=== PATIENT | male | born 1990 | race African-American/Black ===

== ENCOUNTER 2017-07-05 12:59 | Emergency (ER) | payer OTHER ==
[2017-07-05] MEDS ORDERED: IV NORMAL SALINE 1000ML BAG 1,000 ML IV SCH (13:00)
[2017-07-05] MEDS ORDERED: ONDANSETRON PF 4 MG/2 ML VIAL. ONE (13:11)
[2017-07-05] MEDS ORDERED: MORPHINE SULFATE 4 MG/ML DISP.SYRIN. ONE (13:11)
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
[2017-07-05] MEDS ORDERED: MORPHINE SULFATE 4 MG/ML DISP.SYRIN. IV/SQ PRN (13:15)
[2017-07-05 13:20] LABS: BASO % 1 % (0-3); EOS % 3 % (0-3); HEMATOCRIT 39.5 % (39.0-53.0); HEMOGLOBIN 13.5 g/dL (13.0-17.5); LYMPH % 42 % (24-48); MEAN CORPUSCULAR HEMOGLOBIN 37 pg (25-35); MEAN CORPUSCULAR HGB CONC 34 g/dL (31-37); MEAN CORPUSCULAR VOLUME 107 fL (79-100); MONO % 6 % (0-9); NEUT % 49 % (31-73); PLATELET COUNT 250 x10^3/uL (140-400); RED BLOOD COUNT 3.68 x10^6/uL (4.30-5.70); RED CELL DISTRIBUTION WIDTH 12.1 % (11.5-14.5); WHITE BLOOD COUNT 4.7 x10^3/uL (4.0-11.0)
[2017-07-05] MEDS ORDERED: IOHEXOL 300 MG/ML 75 ML VIAL IV ONE (13:30)
[2017-07-05] MEDS ORDERED: ONDANSETRON PF 4 MG/2 ML VIAL. IV ONE (13:30)
[2017-07-05 13:31] LABS: INR 1.2 (0.8-1.1); PROTHROMBIN TIME PATIENT 14.2 SEC (11.7-14.0)
[2017-07-05 13:34] LABS: CALCIUM 8.8 mg/dL (8.5-10.1); CREATININE 0.9 mg/dL (0.7-1.3); GFR 101.2
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
[2017-07-05 13:40] LABS: ALBUMIN 3.7 g/dL (3.4-5.0); DIRECT BILIRUBIN 0.1 mg/dL (0.0-0.2); TOTAL BILIRUBIN 0.6 mg/dL (0.2-1.0); TOTAL PROTEIN 7.3 g/dL (6.4-8.2)
[2017-07-05] MEDS ORDERED: IV NORMAL SALINE 1000ML BAG 1,000 ML IV ONE (14:00)
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
[2017-07-05 14:08] LABS: PLT ESTIMATE ADEQUATE (ADEQUATE)
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
[2017-07-05] MEDS ORDERED: CONTRAST GIVEN MC PRN (14:15)
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
[2017-07-05] MEDS ORDERED: HYDROmorphone 2 MG/ML VIAL ONE (14:47)
[2017-07-05] MEDS ORDERED: NEOMY/BACITR/POLYMYXIN OINT PACKET. TP ONE (14:47)
[2017-07-05] MEDS ORDERED: HYDROmorphone 2 MG/ML VIAL IV/SQ PRN (15:00)
[2017-07-05] MEDS ORDERED: OXYC-323 PO (16:02)
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
== END 2017-07-05 16:04 | disposition left against medical advice (07) ==
LOC: ER 12:59
DX: S00.03XA Contusion of scalp, initial encounter (principal); S60.512A Abrasion of left hand, initial encounter; S60.511A Abrasion of right hand, initial encounter; S40.211A Abrasion of right shoulder, initial encounter; R07.89 Other chest pain; M25.551 Pain in right hip; R06.02 Shortness of breath; M54.5 Low back pain; M54.6 Pain in thoracic spine; V27.4XXA Motorcycle driver injured in collision with fixed or stationary object in traffic accident, initial encounter; Y93.I9 Activity, other involving external motion; Y92.410 Unspecified street and highway as the place of occurrence of the external cause; Y99.8 Other external cause status
CPT/HCPCS: 36415; 70450; 70486; 71010; 71260; 72125; 72170; 73090; 73130; 74160; 80048; 80076; 82150; 83605; 83690; 85025; 85610; 85730; 86850; 86900; 86901; 93005; 99285; G0480; Q9967

== ENCOUNTER 2017-08-22 16:15 | Inpatient (IN) | payer OTHER ==
[~2017-08-22] VITALS: Ht 175.3 cm; Wt 71.2 kg
[2017-08-22] MEDS: VECURONIUM BOLUS 10 MG VIAL. IV ONE ×2 (08:20→18:06)
[~2017-08-22 16:15] MED LIST: OXYC-323 PO
--- NOTE | 2017-08-22 16:41 | PHYS DOC ---
Past Medical History Past Medical History: Diabetes-Type I, Seizure Past Surgical History: No Surgical History Adult General Chief Complaint Chief Complaint: altered mental status, seizure activity. HPI HPI Patient is a pleasant 26-year-old male who presents with altered mental status and question of seizure-like activity. He is noted is some dependent diabetic with a history of recent onset epileptic seizures on Ativan. He had sustained a single episode several days ago injuring his right shoulder and right wrist. He was seen at a clinic and had an evaluation of these injuries. During this particular evaluation patient had multiple episodes of "" abstence seizures. Patient claimed he did have a head injury prior to the seizure activity. He is complaining of a left frontal foreign pain behind his left eye. He denies any visual changes, chest pain, abdominal pain at this time. Patient is having difficulty recalling events surrounding his seizure activity. Review of Systems Review of Systems History is difficult to obtain as patient is still quite altered from his question will seizure activity. Limited questions he is able answer patient denies any chest pain, abdominal pain Constitutional: Denies fever or chills [] Eyes: He complains of pain over his left eyebrow[] HENT: Denies nasal congestion or sore throat [] Respiratory: Denies cough or shortness of breath [] Cardiovascular: No additional information not addressed in HPI [] GI: Denies abdominal pain, nausea, vomiting, bloody stools or diarrhea [] : Denies dysuria or hematuria [] Musculoskeletal: Patient does complain of right wrist pain and right elbow pain for which she is presently wearing splints Neurologic: He does have a headache over the area he injured while on the ground.[] All other systems were reviewed and found to be within normal limits, except as documented in this note. Current Medications Current Medications Current Medications Medications (Trade) Dose Ordered Sig/Conrad Start Time Stop Time Status Last Admin Dose Admin Etomidate (Amidate) 20 mg 1X ONCE 08/22/17 18:00 08/22/17 18:01 DC Haloperidol Lactate (Haldol) 10 mg 1X ONCE 08/22/17 18:00 08/22/17 18:01 DC Lorazepam (Ativan) 2 mg 1X ONCE 08/22/17 18:00 08/22/17 18:01 DC Propofol 50 ml @ As Directed STK-MED ONCE 08/22/17 17:52 08/22/17 17:53 DC Propofol (Diprivan) 200 mg 1X ONCE 08/22/17 18:00 08/22/17 18:01 DC Sodium Chloride 1,000 ml @ 125 mls/hr Q8H 08/22/17 18:06 08/23/17 18:05 UNV Succinylcholine Chloride (Anectine) 200 mg 1X ONCE 08/22/17 18:00 08/22/17 18:01 DC Allergies Allergies Allergies Coded Allergies Type Severity Reaction Last Updated Verified No Known Drug Allergies 07/05/17 No Physical Exam Physical Exam Constitutional: he is thin but muscular and well-developed he seems somnolent and quiet at times but then becomes very agitated reaching out at staff become very angry very quickly although he is confused unaware of his surroundings he exhibits no clear seizure activity but becomes unresponsive with staring into space was as an absence seizure. HENT: Normocephalic, atraumatic, bilateral external ears normal, oropharynx moist, no oral exudates, nose normal. [] Eyes: PERRLA, EOMI, conjunctiva normal, no discharge. [] Neck: Normal range of motion, no tenderness, supple, no stridor. [] Cardiovascular:Heart rate regular rhythm, no murmur [] Lungs & Thorax: Bilateral breath sounds clear to auscultation [] Abdomen: Bowel sounds normal, soft, no tenderness, no masses, no pulsatile masses. [] Skin: Warm, dry, no erythema, no rash. [] Back: No tenderness, no CVA tenderness. [] Extremities: Is some tenderness over the dorsum of the hand where he suffered from 2 lacerations at up in approximated over time not actively bleeding patient also some tenderness along the dorsum of the wrist with no oxygen deformity. Neurologic: he is confused moves ME SPONTANEOUSLY. PHYSICAL PLAN A SLIGHT PAIN OVER THE LATERAL AND MEDIAL EDGES OF THE RIGHT KNEE. Psychologic: he is confused his judgment is impaired Current Patient Data Vital Signs Vital Signs Date Time Temp Pulse Resp B/P (MAP) Pulse Ox O2 Delivery O2 Flow Rate FiO2 08/22/17 16:15 98.9 73 18 119/77 (91) 99 Room Air 98.9 Lab Values Laboratory Tests Test 08/22/17 16:20 08/22/17 16:48 White Blood Count 3.9 x10^3/uL (4.0-11.0) L Red Blood Count 3.56 x10^6/uL (4.30-5.70) L Hemoglobin 12.9 g/dL (13.0-17.5) L Hematocrit 38.1 % (39.0-53.0) L Mean Corpuscular Volume 107 fL (79-100) H Mean Corpuscular Hemoglobin 36 pg (25-35) H Mean Corpuscular Hemoglobin Concent 34 g/dL (31-37) Red Cell Distribution Width 12.6 % (11.5-14.5) Platelet Count 327 x10^3/uL (140-400) Neutrophils (%) (Auto) 49 % (31-73) Lymphocytes (%) (Auto) 43 % (24-48) Monocytes (%) (Auto) 5 % (0-9) Eosinophils (%) (Auto) 3 % (0-3) Basophils (%) (Auto) 1 % (0-3) Neutrophils # (Auto) 1.9 x10^3uL (1.8-7.7) Lymphocytes # (Auto) 1.7 x10^3/uL (1.0-4.8) Monocytes # (Auto) 0.2 x10^3/uL (0.0-1.1) Eosinophils # (Auto) 0.1 x10^3/uL (0.0-0.7) Basophils # (Auto) 0.0 x10^3/uL (0.0-0.2) Sodium Level 140 mmol/L (136-145) Potassium Level 4.4 mmol/L (3.5-5.1) Chloride Level 105 mmol/L (98-107) Carbon Dioxide Level 27 mmol/L (21-32) Anion Gap 8 (6-14) Blood Urea Nitrogen 9 mg/dL (8-26) Creatinine 0.9 mg/dL (0.7-1.3) Estimated GFR (Cockcroft-Gault) 122.5 BUN/Creatinine Ratio 10 (6-20) Glucose Level 93 mg/dL (70-99) Lactic Acid Level 1.2 mmol/L (0.4-2.0) Calcium Level 9.2 mg/dL (8.5-10.1) Magnesium Level 2.0 mg/dL (1.8-2.4) Total Bilirubin 0.4 mg/dL (0.2-1.0) Direct Bilirubin 0.1 mg/dL (0.0-0.2) Aspartate Amino Transferase (AST) 37 U/L (15-37) Alanine Aminotransferase (ALT) 21 U/L (16-63) Alkaline Phosphatase 81 U/L (46-116) Ammonia 38 mcmol/L (11-34) H Troponin I Quantitative < 0.017 ng/mL (0.000-0.055) Total Protein 7.3 g/dL (6.4-8.2) Albumin 4.0 g/dL (3.4-5.0) Albumin/Globulin Ratio 1.2 (1.0-1.7) Glucose (Fingerstick) 98 mg/dL (70-99) Laboratory Tests 08/22/17 16:20 Laboratory Tests 08/22/17 16:20 EKG EKG [] Radiology/Procedures Radiology/Procedures [] IMAGING REPORT Signed PATIENT: DEBORAH LOVE ACCOUNT: [id number] : 1990 LOCATION: ER AGE: 26 SEX: M EXAM STATUS: REG ER ORD. PHYSICIAN: HENRIETTA TIM MD REASON: ams with fall PROCEDURE: CT HEAD WO CONTRAST CT head without contrast 08/22/2017 CLINICAL INDICATION: Altered mental status. COMPARISON: None. TECHNIQUE: Multiple CT images of the head were obtained without contrast according to standard protocol. Procedure dose FINDINGS: No acute intracranial hemorrhage or extra-axial fluid collection. No midline shift. The pabol-white matter interfaces are maintained. The basal cisterns are patent. The ventricles and subarachnoid spaces are normal in size and configuration for age. There is mild ethmoid sinus mucosal thickening. IMPRESSION: 1. No acute intracranial hemorrhage. 2. Mild ethmoid sinus mucosal thickening. Electronically signed by: Merrill Caceres MD (08/22/2017 5:28 PM) [facility] DICTATED and SIGNED BY: MERRILL CACERES MD DATE: 08/22/17 1726 CC: HENRIETTA TIM MD; NO PCP ~ [facility] [address] [place] [address] IMAGING REPORT Signed PATIENT: DEBORAH LOVE ACCOUNT: [id number] : 1990 LOCATION: ER AGE: 26 SEX: M EXAM STATUS: PRE ER ORD. PHYSICIAN: HENRIETTA TIM MD REASON: ams PROCEDURE: PORTABLE CHEST 1V EXAM: CHEST 1 VIEW History: Altered mental status COMPARISON: 07/05/2017 TECHNIQUE: Single portable radiograph of the chest FINDINGS: The cardiac silhouette is unremarkable. The lungs are clear bilaterally. The costophrenic sulci are clear and well demarcated. IMPRESSION: No radiographic evidence of an acute cardiopulmonary process. DICTATED and SIGNED BY: VÍCTOR HERNANDEZ MD DATE: 08/22/17 164 CC: HENRIETTA TIM MD; NO PCP ~ Course & Med Decision Making Course & Med Decision Making Pertinent Labs and Imaging studies reviewed. (See chart for details) [\\\\lMy seizure differential. Acute ischemic or hemorrhagic stroke, particularly lobar hemorrhage subdural hematoma Subarachnoid hemorrhage subarachnoid hemorrhage Traumatic brain injury Hypoxic-ischemic injury Brain abscess Meningitis or encephalitis Acute symptomatic seizures may also be caused by an acute medical illness, metabolic disturbance, substance ingestion or withdrawal, and medication exposure Hypoglycemia Hyperglycemia Nonketotic hyperglycemia Hyponatremia Hypocalcemia Hypomagnesemia Uremia secondary to renal failure Hyperthyroidism Acute intermittent porphyria (AIP) Drug intoxication, poisoning, and overdose `` Cocaine, amphetamines, and other illicit substances may cause seizures after acute intoxication. Prescribed medications that may lower the seizure threshold or cause seizures in overdose are listed in the table Cerebrovascular disease Primary or metastatic brain tumors Vascular malformations Prior central nervous system infection, such as neurocysticercosis Head injury (see "Post-traumatic seizures and epilepsy") Neurodegenerative dementia, including Alzheimer disease DIFFERENTIAL DIAGNOSIS Seizure is primarily a clinical diagnosis, and accurate diagnosis requires differentiating seizure from other common clinical events that can mimic seizure. In adults, the primary conditions to consider in patients presenting with transient or paroxysmal neurologic events Syncope Transient ischemic attack (particularly in older adults) Migraine Panic attack and anxiety Psychogenic nonepileptic seizure Transient global amnesia (rare before the age of 50 years) Narcolepsy with cataplexy Paroxysmal movement disorders Presents with acute agitation and seizure activity; for the last 4 weeks according to the girlfriend/fianc at the bedside. Patient was very complacent and interactive and appropriate during initial evaluation. Over the course of his ER visit patient was able to comply and allowed us to complete and EKG, our blood work with IV Hep-Lock. He immediately passed out during her initial evaluation and became increasing agitated and attempting to rule out the IV at the time. We offered him Ativan for sedation which was happy to take. 2 to work to sedate him. Time is 4:30 PM patient was feeling markedly better and he became acutely unresponsive again try to remove his IV became very agitated not recognize where he was or who he is taking care of him. Patient quietly went to the CT scanner at 5 PM without issue. Patient was placed on oxygen and had an Accu-Chek done on arrival to ensure that the psychosis that he was experiencing was no social hypoxia or hypoglycemia. They did not affect his mentation at all. His Accu-Chek on arrival was 98 Impression patient had repeated episodes of this syncopal events while at rest while attempting to stand. At one point when his fiance and friend came into visit he became acutely agitated and attempted to leave AMA. Patient became acutely aggressive with staff attempted to push his way out the door when a code bev was called. Security and placed patient became increasing agitated removed his shirt and encouraged the mobile security specialist to tase him. Patient as he tried to push his way out of the room completely collapsed. Became unresponsive. There is no seizure activity time staff immediately picked him up identified. No specific injury on him and placed him in the bed. When he awoke he became increasing agitated begin strike out at the staff attempted to grab the nurse's and strike the physician. Subdued him at the time using pressure and soft restraints an additional dose of Haldol was given IM and Ativan. Patient was continually active and violent. Continually claimed that when he was being held against his will and that we had no right to treat him's as such but enforcing he would pass out again and become unresponsive. For his safety and the safety of staff we felt it best to intervene keep this patient for more thorough evaluation in the ICU for evaluation of this syncope which may be cardiogenic in nature. I concern it also may be an absence seizure or may be associated with drugs. I will call and expiratory evaluation. We transported him from room 22 to room 4 for safety. Over the course of the movement from room 22 to room 4 patient became unresponsive again. These episodes of CP last anywhere from 10-2 minutes patient became increasing agitated once awoke again. It was decided to protect this patient's airway because of the syncopal events/seizure activity that he was expressing. Patient has a Mallampati 1, he has an ASA class patient to it was unclear about his last meal but he clearly had no immobility issues with his neck or issues with his teeth. Patient has no documented challenges with anesthesia. I elected to intubate him with a 4.0 Mac, using 8.0 ET tube. Patient had 150 mg of IV succinylcholine ordered, 20 monos of IV etomidate ordered, propofol to included a 2.5 mg gram bolus of present and a sedation drip ordered after that. Patient was also given a 10 g dose of vecuronium to keep him sedate while on the vent. Intubation completed at approximately 6:10 PM Seizure: Indication airway protection for sudden altered mental status and syncope. Patient was prepped and preoxygenated with an Ambu bag as well as a nasal cannulas. Patient was placed on the monitor and capnometry, and IV Hep- Lock that was verified, patient was given IV fluid bolus given the medications as ordered above. Patient was given medication since order of etomidate, succinylcholine, propofol intubated first past. 80 ET tube was placed 24 seconds at the teeth visualized through the cords, first pass without issue patient had the ET tube touch to his face. Commercial device, patient capnometry that was positive for change. Patient never became hypoxic, patient has been resting comfortable. he was placed on a ventilator machine was placed on the vent rate of 12 tidal volume of 500. On assist control. In saturation or her percent on FiO2 50%. Patient on ABG ordered as well as a post intubation chest x-ray completed. Communications Controller note: Dr. Jeanie mares Communications Controller called at of the service initially paged at 6:15 PM Consult called back at 6:15 PM Discussed the case I presented and they agreed with admission. Time of acceptance 6:15 PM "I have assessed this patient clinically and believe that their condition requires an admission to the hospital. After consulting the admitting physician about this case, they have asked that I admit this patient to their service as an inpatient based on the clinical presentation and my impression." I spent approximately 45-50 minutes working and engaged directly in the patient care providing critical care evaluation this includes but not limited to time spent engaged in work directly related to the individual patients care. I spent time at the bedside, reviewing test results, discussing the case with staff, documenting the medical record and time spent with EMS discussing specific treatment issues when the patient presented and during his evaluation. Dragon Disclaimer Dragon Disclaimer This electronic medical record was generated, in whole or in part, using a voice recognition dictation system. Departure Departure Impression: Primary Impression: Seizures Additional Impressions: Mental status change Syncope and collapse Disposition: 09 ADMITTED INPATIENT Admitting Physician: Jeanie Mares Condition: GUARDED Referrals: NO PCP (PCP) Problem Qualifiers HENRIETTA TIM MD Aug 22, 2017 16:41
[2017-08-22 16:43] LABS: BASO % 1 % (0-3); EOS % 3 % (0-3); HEMATOCRIT 38.1 % (39.0-53.0); HEMOGLOBIN 12.9 g/dL (13.0-17.5); LYMPH # 1.7 x10^3/uL (1.0-4.8); LYMPH % 43 % (24-48); MEAN CORPUSCULAR HEMOGLOBIN 36 pg (25-35); MEAN CORPUSCULAR HGB CONC 34 g/dL (31-37); MEAN CORPUSCULAR VOLUME 107 fL (79-100); MONO % 5 % (0-9); NEUT % 49 % (31-73); PLATELET COUNT 327 x10^3/uL (140-400); RED BLOOD COUNT 3.56 x10^6/uL (4.30-5.70); RED CELL DISTRIBUTION WIDTH 12.6 % (11.5-14.5); WHITE BLOOD COUNT 3.9 x10^3/uL (4.0-11.0)
--- NOTE | 2017-08-22 16:50 | RAD ---
EXAM: CHEST 1 VIEW History: Altered mental status COMPARISON: 07/05/2017 TECHNIQUE: Single portable radiograph of the chest FINDINGS: The cardiac silhouette is unremarkable. The lungs are clear bilaterally. The costophrenic sulci are clear and well demarcated. IMPRESSION: No radiographic evidence of an acute cardiopulmonary process.
[2017-08-22 16:54] LABS: CALCIUM 9.2 mg/dL (8.5-10.1); CREATININE 0.9 mg/dL (0.7-1.3); GFR 122.5; POTASSIUM 4.4 mmol/L (3.5-5.1)
[2017-08-22 17:00] LABS: ALBUMIN/GLOBULIN RATIO 1.2 (1.0-1.7); DIRECT BILIRUBIN 0.1 mg/dL (0.0-0.2); TOTAL BILIRUBIN 0.4 mg/dL (0.2-1.0); TOTAL PROTEIN 7.3 g/dL (6.4-8.2)
--- NOTE | 2017-08-22 17:32 | RAD ---
CT head without contrast 08/22/2017 CLINICAL INDICATION: Altered mental status. COMPARISON: None. TECHNIQUE: Multiple CT images of the head were obtained without contrast according to standard protocol. Procedure dose FINDINGS: No acute intracranial hemorrhage or extra-axial fluid collection. No midline shift. The pablo-white matter interfaces are maintained. The basal cisterns are patent. The ventricles and subarachnoid spaces are normal in size and configuration for age. There is mild ethmoid sinus mucosal thickening. IMPRESSION: 1. No acute intracranial hemorrhage. 2. Mild ethmoid sinus mucosal thickening. Electronically signed by: Donavon Caceres MD (08/22/2017 5:28 PM) [facility]
[2017-08-22] MEDS ORDERED: HALOPERIDOL LACTATE 5 MG/ML VIAL. ONE (17:39)
[2017-08-22] MEDS ORDERED: PROPOFOL 50 ML IV ONE ×2 (17:52→18:17)
--- NOTE | 2017-08-22 17:58 | EKG ---
[facility] [address] [place] [address] Test Date: 2017-08-22 Test Time: 16:44:07 Pat Name: DEBORAH LOVE Department: Room: Gender: Flare Maker: BRITTNI : 1990 Requested By: HENRIETTA TIM Order Number: [id number] Reading MD: Measurements Intervals [place] Rate: 69 P: 39 TN: 186 QRS: 82 QRSD: 98 T: 44 QT: 354 QTc: 381 Interpretive Statements SINUS RHYTHM INCOMPLETE RIGHT BUNDLE BRANCH BLOCK QRS(T) CONTOUR ABNORMALITY CONSIDER ANTEROSEPTAL MYOCARDIAL DAMAGE POSSIBLY ABNORMAL ECG RI6.01 No previous ECG available for comparison
[2017-08-22] MEDS ORDERED: HALOPERIDOL LACTATE 5 MG/ML VIAL. IM ONE (18:00)
[2017-08-22] MEDS ORDERED: PROPOFOL 10 MG/ML (20ML) VIAL. IV ONE (18:00)
[2017-08-22] MEDS ORDERED: SUCCINYLCHOLINE 200 MG/10 ML VIAL. IV ONE (18:00)
[2017-08-22] MEDS ORDERED: PROPOFOL 20 ML IV ONE (18:00)
[2017-08-22] MEDS ORDERED: ETOMIDATE 20 MG/10 ML VIAL. IV ONE (18:00)
[2017-08-22] MEDS ORDERED: IV NORMAL SALINE 1000ML BAG 1,000 ML IV SCH (18:06)
[2017-08-22 18:36] LABS: FIO2 ABG 50; HCO3 ABG 25 mmol/L (21-28); PCO2 ABG 51 mmHg (35-46); PH ABG 7.32 (7.35-7.45); PO2 ABG 200 mmHg (85-108); SAT O2 ABG 99 % (92-99)
[2017-08-22 19:00] VITALS: BP 93/49
[2017-08-22 19:27] LABS: BILIRUBIN,URINE NEGATIVE (NEG); GLUCOSE,URINE NEGATIVE (NEG); NITRITE,URINE NEGATIVE (NEG); PH,URINE 5.5; PROTEIN,URINE NEGATIVE (NEG-TRACE); UROBILINOGEN,URINE 0.2 mg/dL (0.2 mg/dL)
[2017-08-22 19:45] LABS: BARBITURATES NEG (NEG); BENZODIAZEPINES POS (NEG); CANNABINOIDS POS (NEG); COCAINE NEG (NEG); METHADONE NEG (NEG); OPIATES NEG (NEG); PHENCYCLIDINE NEG (NEG)
[2017-08-22 19:52] LABS: BACTERIA,URINE 0 /HPF (0-FEW); RBC,URINE OCC /HPF (0-2); SQUAMOUS EPITHELIAL CELL,UR FEW /LPF; WBC,URINE 0 /HPF (0-4)
[2017-08-22 20:00] VITALS: BP 86/49
[2017-08-22] MEDS: PROPOFOL 100 ML IV PRN (20:31)
--- NOTE | 2017-08-22 20:40 | RAD ---
AP abdominal radiograph 08/22/2017 Clinical indication: ICU patient, OG tube placement. COMPARISON: None. FINDINGS: Transesophageal gastric tube coursing below the level the hemidiaphragms with the distal tip and proximal side-port overlying the expected region of the gastric fundus. IMPRESSION: Gastric tube, as detailed. Electronically signed by: Donavon Caceres MD (08/22/2017 8:36 PM) [facility]
[2017-08-22 21:00] VITALS: BP 90/52
[2017-08-22] MEDS ORDERED: levETIRAcetam 500 MG in IV DEXTROSE 5% 100 ML IV SCH (21:00)
[2017-08-22] MEDS ORDERED: AZITHROMYCIN 500 MG in IV NORMAL SALINE 250ML 250 ML IV ONE (21:30)
[2017-08-22 22:00] VITALS: BP 96/53
--- NOTE | 2017-08-22 22:34 | PDOC1 ---
History and Physical Date of Admission Date of Admission DATE: 08/22/17 TIME: 22:28 Identification/Chief Complaint Chief Complaint seizure, face pain, shoulder pain Problems: Source Source: Caregiver, Chart review History of Present Illness History of Present Illness Pt intubated, history from chart and RN and ER MD Mr. Lane, is a 26-year-old male admit to ICU, intubated after becoming confused and combative. He presented with seizure-like activity, and recent seizures, but was reported to be taking ativan for them He injured himself a few days ago, after a large witnessed seizure. He wanted his shoulder evaluated for pain, but then had multiple small seizures in the ER , became confused, then combative, and was intubated as he seemed to be a danger to himself He complained of some pain near his left eye, and CT showed edema to his sinuses. Past Medical History CENTRAL NERVOUS SYSTEM: Seizure Psych: Other Family History Family History: Family History Unknown Social History ALCOHOL: other Drugs: Marijuana Current Problem List Problem List Problems Medical Problems: (1) Syncope and collapse Status: Acute Problems: Current Medications Current Medications Current Medications Lorazepam (Ativan) 2 mg STK-MED ONCE .ROUTE ; Start 08/22/17 at 16:20; Stop 08/22/17 at 16:21; Status DC Lorazepam (Ativan) 2 mg 1X ONCE IV Last administered on 08/22/17 16:20; Start 08/22/17 at 16:30; Stop 08/22/17 at 16:31; Status DC Haloperidol Lactate (Haldol) 5 mg STK-MED ONCE .ROUTE ; Start 08/22/17 at 17:39 ; Stop 08/22/17 at 17:40; Status DC Succinylcholine Chloride (Anectine) 200 mg 1X ONCE IV Last administered on 17:58; Start 08/22/17 at 18:00; Stop 08/22/17 at 18:01; Status DC Etomidate (Amidate) 20 mg 1X ONCE IV Last administered on 08/22/17 17:57; Start 08/22/17 at 18:00; Stop 08/22/17 at 18:01; Status DC Haloperidol Lactate (Haldol) 10 mg 1X ONCE IM Last administered on 08/22/17 17:42; Start 08/22/17 at 18:00; Stop 08/22/17 at 18:01; Status DC Lorazepam (Ativan) 2 mg 1X ONCE IM Last administered on 08/22/17 17:42; Start 08/22/17 at 18:00; Stop 08/22/17 at 18:01; Status DC Propofol (Diprivan) 200 mg 1X ONCE IV Last administered on 08/22/17 18:02; Start 08/22/17 at 18:00; Stop 08/22/17 at 18:01; Status DC Propofol 20 ml @ 0 mls/hr 1X ONCE IV Last administered on 08/22/17 18:02; Start 08/22/17 at 18:00; Stop 08/22/17 at 18:01; Status DC Propofol 50 ml @ As Directed STK-MED ONCE IV ; Start 08/22/17 at 17:52; Stop at 17:53; Status DC Sodium Chloride 1,000 ml @ 125 mls/hr Q8H IV Last administered on 08/22/17 18 :06; Start 08/22/17 at 18:06; Stop 08/23/17 at 18:05 Propofol 50 ml @ As Directed STK-MED ONCE IV ; Start 08/22/17 at 18:17; Stop at 18:18; Status DC Vecuronium [place] (Norcuron Bolus) 10 mg 1X ONCE IV Last administered on 08/22 18:06; Start 08/22/17 at 18:30; Stop 08/22/17 at 18:31; Status DC Levetiracetam 500 mg/Dextrose 105 ml @ 420 mls/hr Q12HR IV ; Start 08/22/17 at 21:00; Stop 08/22/17 at 21:00; Status DC Levetiracetam 500 mg/Sodium Chloride 105 ml @ 420 mls/hr Q12HR IV Last administered on 08/22/17 21:34; Start 08/22/17 at 21:00 Lorazepam (Ativan) 1 mg PRN Q1HR PRN IV COMM; Start 08/22/17 at 20:15 Lorazepam (Ativan) 2 mg PRN Q1HR PRN IV COMM; Start 08/22/17 at 20:15 Propofol 100 ml @ 0 mls/hr CONT PRN IV PER PROTOCOL Last administered on 20:31; Start 08/22/17 at 20:15 Azithromycin 500 mg/Sodium Chloride 250 ml @ 250 mls/hr 1X ONCE IV Last administered on 08/22/17 21:59; Start 08/22/17 at 21:30; Stop 08/22/17 at 22:29 Azithromycin (Zithromax) 250 mg DAILY PO ; Start 08/23/17 at 09:00 Active Scripts Active Percocet 5-325 Mg Tablet (Oxycodone/Acetaminophen) 1 Each Tablet 1-2 Tab PO Q6HRS PRN Allergies Allergies: Coded Allergies: No Known Drug Allergies (Unverified , 07/05/17) ROS Review of System unable, pt confused, then intubated Physical Exam General: moderate distress, Other HEENT: Atraumatic, EOMI Lungs: Clear to auscultation, Normal air movement, Other (on vent) Heart: S1S2, no murmurs, other Abdomen: Normal bowel sounds, Soft Rectal Exam: not examined Extremities: No clubbing, No edema, Normal pulses Skin: No rashes, Other Neuro: Other Psych/Mental Status: Other Vitals Vitals Vital Signs Date Time Temp Pulse Resp B/P (MAP) Pulse Ox O2 Delivery O2 Flow Rate FiO2 08/22/17 22:05 100 Ventilator 08/22/17 18:35 73 12 08/22/17 16:15 98.9 119/77 (91) 98.9 Labs Labs Laboratory Tests Test 08/22/17 16:20 08/22/17 16:48 08/22/17 18:15 08/22/17 18:58 White Blood Count 3.9 x10^3/uL (4.0-11.0) Red Blood Count 3.56 x10^6/uL (4.30-5.70) Hemoglobin 12.9 g/dL (13.0-17.5) Hematocrit 38.1 % (39.0-53.0) Mean Corpuscular Volume 107 fL (79-100) Mean Corpuscular Hemoglobin 36 pg (25-35) Mean Corpuscular Hemoglobin Concent 34 g/dL (31-37) Red Cell Distribution Width 12.6 % (11.5-14.5) Platelet Count 327 x10^3/uL (140-400) Neutrophils (%) (Auto) 49 % (31-73) Lymphocytes (%) (Auto) 43 % (24-48) Monocytes (%) (Auto) 5 % (0-9) Eosinophils (%) (Auto) 3 % (0-3) Basophils (%) (Auto) 1 % (0-3) Neutrophils # (Auto) 1.9 x10^3uL (1.8-7.7) Lymphocytes # (Auto) 1.7 x10^3/uL (1.0-4.8) Monocytes # (Auto) 0.2 x10^3/uL (0.0-1.1) Eosinophils # (Auto) 0.1 x10^3/uL (0.0-0.7) Basophils # (Auto) 0.0 x10^3/uL (0.0-0.2) Sodium Level 140 mmol/L (136-145) Potassium Level 4.4 mmol/L (3.5-5.1) Chloride Level 105 mmol/L (98-107) Carbon Dioxide Level 27 mmol/L (21-32) Anion Gap 8 (6-14) Blood Urea Nitrogen 9 mg/dL (8-26) Creatinine 0.9 mg/dL (0.7-1.3) Estimated GFR (Cockcroft-Gault) 122.5 BUN/Creatinine Ratio 10 (6-20) Glucose Level 93 mg/dL (70-99) Lactic Acid Level 1.2 mmol/L (0.4-2.0) Calcium Level 9.2 mg/dL (8.5-10.1) Magnesium Level 2.0 mg/dL (1.8-2.4) Total Bilirubin 0.4 mg/dL (0.2-1.0) Direct Bilirubin 0.1 mg/dL (0.0-0.2) Aspartate Amino Transf (AST/SGOT) 37 U/L (15-37) Alanine Aminotransferase (ALT/SGPT) 21 U/L (16-63) Alkaline Phosphatase 81 U/L (46-116) Ammonia 38 mcmol/L (11-34) Troponin I Quantitative < 0.017 ng/mL (0.000-0.055) Total Protein 7.3 g/dL (6.4-8.2) Albumin 4.0 g/dL (3.4-5.0) Albumin/Globulin Ratio 1.2 (1.0-1.7) Glucose (Fingerstick) 98 mg/dL (70-99) O2 Saturation 99 % (92-99) Arterial Blood pH 7.32 (7.35-7.45) Arterial Blood pCO2 at Patient Temp 51 mmHg (35-46) Arterial Blood pO2 at Patient Temp 200 mmHg (85-108) Arterial Blood HCO3 25 mmol/L (21-28) Arterial Blood Base Excess -1 mmol/L (-3-3) FiO2 50 Urine Collection Type U cath Urine Color Yellow Urine Clarity Hazy Urine pH 5.5 Urine Specific [place] 1.025 Urine Protein Negative mg/dL (NEG-TRACE) Urine Glucose (UA) Negative mg/dL (NEG) Urine Ketones (Stick) Negative mg/dL (NEG) Urine Blood Negative (NEG) Urine Nitrite Negative (NEG) Urine Bilirubin Negative (NEG) Urine Urobilinogen Dipstick 0.2 mg/dL (0.2 mg/dL) Urine Leukocyte Esterase Negative (NEG) Urine RBC Occ /HPF (0-2) Urine WBC 0 /HPF (0-4) Urine Squamous Epithelial Cells Few /LPF Urine Transitional Epithelial Cells Occ /LPF Urine Bacteria 0 /HPF (0-FEW) Urine Mucus Marked /LPF Urine Opiates Screen Neg (NEG) Urine Methadone Screen Neg (NEG) Urine Barbiturates Neg (NEG) Urine Phencyclidine Screen Neg (NEG) Urine Amphetamine/Methamphetamine Neg (NEG) Urine Benzodiazepines Screen Pos (NEG) Urine Cocaine Screen Neg (NEG) Urine Cannabinoids Screen Pos (NEG) Urine Ethyl Alcohol Neg (NEG) Test 08/22/17 21:12 Glucose (Fingerstick) 77 mg/dL (70-99) Laboratory Tests Test 08/22/17 16:20 08/22/17 16:48 08/22/17 18:15 08/22/17 18:58 White Blood Count 3.9 x10^3/uL (4.0-11.0) Red Blood Count 3.56 x10^6/uL (4.30-5.70) Hemoglobin 12.9 g/dL (13.0-17.5) Hematocrit 38.1 % (39.0-53.0) Mean Corpuscular Volume 107 fL (79-100) Mean Corpuscular Hemoglobin 36 pg (25-35) Mean Corpuscular Hemoglobin Concent 34 g/dL (31-37) Red Cell Distribution Width 12.6 % (11.5-14.5) Platelet Count 327 x10^3/uL (140-400) Neutrophils (%) (Auto) 49 % (31-73) Lymphocytes (%) (Auto) 43 % (24-48) Monocytes (%) (Auto) 5 % (0-9) Eosinophils (%) (Auto) 3 % (0-3) Basophils (%) (Auto) 1 % (0-3) Neutrophils # (Auto) 1.9 x10^3uL (1.8-7.7) Lymphocytes # (Auto) 1.7 x10^3/uL (1.0-4.8) Monocytes # (Auto) 0.2 x10^3/uL (0.0-1.1) Eosinophils # (Auto) 0.1 x10^3/uL (0.0-0.7) Basophils # (Auto) 0.0 x10^3/uL (0.0-0.2) Sodium Level 140 mmol/L (136-145) Potassium Level 4.4 mmol/L (3.5-5.1) Chloride Level 105 mmol/L (98-107) Carbon Dioxide Level 27 mmol/L (21-32) Anion Gap 8 (6-14) Blood Urea Nitrogen 9 mg/dL (8-26) Creatinine 0.9 mg/dL (0.7-1.3) Estimated GFR (Cockcroft-Gault) 122.5 BUN/Creatinine Ratio 10 (6-20) Glucose Level 93 mg/dL (70-99) Lactic Acid Level 1.2 mmol/L (0.4-2.0) Calcium Level 9.2 mg/dL (8.5-10.1) Magnesium Level 2.0 mg/dL (1.8-2.4) Total Bilirubin 0.4 mg/dL (0.2-1.0) Direct Bilirubin 0.1 mg/dL (0.0-0.2) Aspartate Amino Transf (AST/SGOT) 37 U/L (15-37) Alanine Aminotransferase (ALT/SGPT) 21 U/L (16-63) Alkaline Phosphatase 81 U/L (46-116) Ammonia 38 mcmol/L (11-34) Troponin I Quantitative < 0.017 ng/mL (0.000-0.055) Total Protein 7.3 g/dL (6.4-8.2) Albumin 4.0 g/dL (3.4-5.0) Albumin/Globulin Ratio 1.2 (1.0-1.7) Glucose (Fingerstick) 98 mg/dL (70-99) O2 Saturation 99 % (92-99) Arterial Blood pH 7.32 (7.35-7.45) Arterial Blood pCO2 at Patient Temp 51 mmHg (35-46) Arterial Blood pO2 at Patient Temp 200 mmHg (85-108) Arterial Blood HCO3 25 mmol/L (21-28) Arterial Blood Base Excess -1 mmol/L (-3-3) FiO2 50 Urine Collection Type U cath Urine Color Yellow Urine Clarity Hazy Urine pH 5.5 Urine Specific [place] 1.025 Urine Protein Negative mg/dL (NEG-TRACE) Urine Glucose (UA) Negative mg/dL (NEG) Urine Ketones (Stick) Negative mg/dL (NEG) Urine Blood Negative (NEG) Urine Nitrite Negative (NEG) Urine Bilirubin Negative (NEG) Urine Urobilinogen Dipstick 0.2 mg/dL (0.2 mg/dL) Urine Leukocyte Esterase Negative (NEG) Urine RBC Occ /HPF (0-2) Urine WBC 0 /HPF (0-4) Urine Squamous Epithelial Cells Few /LPF Urine Transitional Epithelial Cells Occ /LPF Urine Bacteria 0 /HPF (0-FEW) Urine Mucus Marked /LPF Urine Opiates Screen Neg (NEG) Urine Methadone Screen Neg (NEG) Urine Barbiturates Neg (NEG) Urine Phencyclidine Screen Neg (NEG) Urine Amphetamine/Methamphetamine Neg (NEG) Urine Benzodiazepines Screen Pos (NEG) Urine Cocaine Screen Neg (NEG) Urine Cannabinoids Screen Pos (NEG) Urine Ethyl Alcohol Neg (NEG) Test 08/22/17 21:12 Glucose (Fingerstick) 77 mg/dL (70-99) VTE Prophylaxis Ordered VTE Prophylaxis Devices: No VTE Pharmacological Prophylaxi: Yes Assessment/Plan Assessment/Plan acute encephalopathy, NOS, combative and agitated, possible psychosis, Seizure disorder, mult small of activity seen in the ER, poss abcence, Substance abuse, THC, suspect other reported Diabetes, NOS, blood sugars stable sinusitis on CT scan with report of facial pain, Azithromycin macrocytosis without anemia, check b12 and folate, admit to ICU WOODY MORENO MD Aug 22, 2017 22:33
[2017-08-22 23:00] VITALS: BP 95/62
[2017-08-22] MEDS: ENOXAPARIN 40 MG/0.4 ML SYRINGE. SQ SCH (23:43)
[2017-08-22 23:59] VITALS: BP 94/55
[2017-08-23] VITALS (23 sets, daily range): BP systolic 96–135; BP diastolic 43–79
[2017-08-23] MEDS ORDERED: PNEUMOCOCCAL VAX SCREEN BY RX. MC ONE (00:15)
[2017-08-23] MEDS ORDERED: FAMOTIDINE 20 MG/2 ML VIAL IVP ONE (02:30)
[2017-08-23] MEDS: IV NORMAL SALINE 1000ML BAG 1,000 ML IV SCH ×3 (02:39→15:50)
[2017-08-23] MEDS: PROPOFOL 100 ML IV PRN ×3 (04:43→20:55)
[2017-08-23 05:57] LABS: BASO % 1 % (0-3); EOS % 4 % (0-3); HEMATOCRIT 34.8 % (39.0-53.0); HEMOGLOBIN 11.7 g/dL (13.0-17.5); LYMPH # 1.8 x10^3/uL (1.0-4.8); LYMPH % 60 % (24-48); MEAN CORPUSCULAR HEMOGLOBIN 37 pg (25-35); MEAN CORPUSCULAR HGB CONC 34 g/dL (31-37); MEAN CORPUSCULAR VOLUME 109 fL (79-100); MONO % 7 % (0-9); NEUT % 29 % (31-73); PLATELET COUNT 285 x10^3/uL (140-400); RED CELL DISTRIBUTION WIDTH 12.7 % (11.5-14.5)
[2017-08-23 06:56] LABS: ALBUMIN 3.2 g/dL (3.4-5.0); CALCIUM 8.4 mg/dL (8.5-10.1); CREATININE 0.8 mg/dL (0.7-1.3); GFR 140.3; POTASSIUM 3.5 mmol/L (3.5-5.1); TOTAL BILIRUBIN 0.7 mg/dL (0.2-1.0); TOTAL PROTEIN 6.4 g/dL (6.4-8.2)
--- NOTE | 2017-08-23 07:20 | RAD ---
Left elbow, 3 views, 08/22/2017: History: Fall, pain No fracture or dislocation is identified. There is no radiographic evidence of a joint effusion. IMPRESSION: No acute left elbow abnormality is detected.
--- NOTE | 2017-08-23 07:20 | RAD ---
Right wrist, 3 views, 08/22/2017: History: Fall, pain No fracture or dislocation is identified. There is a tiny benign-appearing cyst in the capitate bone. IMPRESSION: No acute bony abnormality is detected. Right knee, 3 views, 08/22/2017: History: Fall, pain No fracture or dislocation is identified. There is no radiographic evidence of a joint effusion. IMPRESSION: No acute right knee abnormality is detected.
--- NOTE | 2017-08-23 07:28 | RAD ---
Portable chest, 08/22/2017, 6:37 PM: History: Check ET tube placement Comparison is made to a study from earlier the same day. An ET tube has been placed with its tip located 8-9 cm above the david at the level of the thoracic inlet. The heart size and pulmonary vascularity are normal. The lungs are clear. There is no evidence of pleural fluid or pneumothorax. IMPRESSION: 1. Somewhat high ET tube placement as described above. 2. No acute cardiopulmonary abnormality is detected.
--- NOTE | 2017-08-23 07:29 | RAD ---
Portable chest, 08/23/2017: History: Respiratory failure, intubation Comparison is made to yesterday evenings study. The tip of the ET tube now lies 7 cm above the david. An NG tube extends into the stomach. The heart size is normal. No pulmonary infiltrates are seen. There is no evidence of pleural fluid or pneumothorax. IMPRESSION: 1. The ET tube and NG tube are in satisfactory positions. 2. No acute cardiopulmonary abnormality is detected.
[2017-08-23 08:43] LABS: HCO3 ABG 25 mmol/L (21-28); PCO2 ABG 42 mmHg (35-46); PH ABG 7.38 (7.35-7.45); PO2 ABG 99 mmHg (85-108); SAT O2 ABG 97 % (92-99)
[2017-08-23 08:49] LABS: FIO2 ABG 40
[2017-08-23] MEDS ORDERED: PNEUMOC CONJ VACC 23-VALENT 0.5 ML VIAL. VAX IM ONE (09:00)
[2017-08-23] MEDS: AZITHROMYCIN 250 MG TABLET. PO SCH (09:27)
[2017-08-23] MEDS: FAMOTIDINE 20 MG/2 ML VIAL IVP SCH ×2 (09:27→20:47)
[2017-08-23 10:03] LABS: FOLATE 12.1 ng/ml (3.2-20.0)
[2017-08-23 10:07] LABS: % EOS 2 % (0-5)
[2017-08-23 10:08] LABS: PLT ESTIMATE ADEQUATE (ADEQUATE)
--- NOTE | 2017-08-23 10:12 | PDOC2 ---
NEUROLOGY CONSULT Date of Admission Date of Admission DATE: 08/23/17 TIME: 10:06 Reason for Consult Reason for Consult: Seizures Referring Physician Referring Physician: Dr. Mares Source Source: Chart review History of Present Illness History of Present Illness The patient is a 26-year-old right-handed male who for the past month has had episodes of passing out. I do not get a story for compulsive activity but he just passes out. He went to the emergency department last night and was combative. He tried to leave, but passed out in the arms of the security assurance specialist. Because of combativeness he was intubated and sedated. Past Medical History Cardiovascular: HTN CENTRAL NERVOUS SYSTEM: Seizure, Other (headache) Psych: Anxiety, Bipolar, Depression Musculoskeletal: Other (Rib fractures) Endocrine: Diabetes (type 1) Past Surgical History Past Surgical History: Other ( left leg antonino) Family History Family History: No pertinent hx ( not obtainable) Social History Social History Not obtainable Current Medications Current Medications Current Medications Lorazepam (Ativan) 2 mg STK-MED ONCE .ROUTE ; Start 08/22/17 at 16:20; Stop 08/22/17 at 16:21; Status DC Lorazepam (Ativan) 2 mg 1X ONCE IV Last administered on 08/22/17 16:20; Start 08/22/17 at 16:30; Stop 08/22/17 at 16:31; Status DC Haloperidol Lactate (Haldol) 5 mg STK-MED ONCE .ROUTE ; Start 08/22/17 at 17:39 ; Stop 08/22/17 at 17:40; Status DC Succinylcholine Chloride (Anectine) 200 mg 1X ONCE IV Last administered on 17:58; Start 08/22/17 at 18:00; Stop 08/22/17 at 18:01; Status DC Etomidate (Amidate) 20 mg 1X ONCE IV Last administered on 08/22/17 17:57; Start 08/22/17 at 18:00; Stop 08/22/17 at 18:01; Status DC Haloperidol Lactate (Haldol) 10 mg 1X ONCE IM Last administered on 08/22/17 17:42; Start 08/22/17 at 18:00; Stop 08/22/17 at 18:01; Status DC Lorazepam (Ativan) 2 mg 1X ONCE IM Last administered on 08/22/17 17:42; Start 08/22/17 at 18:00; Stop 08/22/17 at 18:01; Status DC Propofol (Diprivan) 200 mg 1X ONCE IV Last administered on 08/22/17 18:02; Start 08/22/17 at 18:00; Stop 08/22/17 at 18:01; Status DC Propofol 20 ml @ 0 mls/hr 1X ONCE IV Last administered on 08/22/17 18:02; Start 08/22/17 at 18:00; Stop 08/22/17 at 18:01; Status DC Propofol 50 ml @ As Directed STK-MED ONCE IV ; Start 08/22/17 at 17:52; Stop at 17:53; Status DC Sodium Chloride 1,000 ml @ 125 mls/hr Q8H IV Last administered on 08/22/17 18 :06; Start 08/22/17 at 18:06; Stop 08/23/17 at 02:18; Status DC Propofol 50 ml @ As Directed STK-MED ONCE IV ; Start 08/22/17 at 18:17; Stop at 18:18; Status DC Vecuronium [place] (Norcuron Bolus) 10 mg 1X ONCE IV Last administered on 08/22 18:06; Start 08/22/17 at 18:30; Stop 08/22/17 at 18:31; Status DC Levetiracetam 500 mg/Dextrose 105 ml @ 420 mls/hr Q12HR IV ; Start 08/22/17 at 21:00; Stop 08/22/17 at 21:00; Status DC Levetiracetam 500 mg/Sodium Chloride 105 ml @ 420 mls/hr Q12HR IV Last administered on 08/23/17 09:27; Start 08/22/17 at 21:00 Lorazepam (Ativan) 1 mg PRN Q1HR PRN IV COMM; Start 08/22/17 at 20:15 Lorazepam (Ativan) 2 mg PRN Q1HR PRN IV COMM; Start 08/22/17 at 20:15 Propofol 100 ml @ 0 mls/hr CONT PRN IV PER PROTOCOL Last administered on 04:43; Start 08/22/17 at 20:15 Azithromycin 500 mg/Sodium Chloride 250 ml @ 250 mls/hr 1X ONCE IV Last administered on 08/22/17 21:59; Start 08/22/17 at 21:30; Stop 08/22/17 at 22:29 ; Status DC Azithromycin (Zithromax) 250 mg DAILY PO Last administered on 08/23/17 09:27; Start 08/23/17 at 09:00 Enoxaparin Sodium (Lovenox Per Pharmacy Prophylaxis Dosing) 1 each PRN DAILY PRN MC SEE COMMENTS; Start 08/22/17 at 23:00; Stop 08/23/17 at 08:19; Status DC Enoxaparin Sodium (Lovenox 40mg Syringe) 40 mg Q24H SQ Last administered on 23:43; Start 08/22/17 at 23:00 Pneumococcal Polyvalent Vaccine (Do NOT chart on this placeholder) 1 each 1X ONCE MC ; Start 08/23/17 at 00:15; Stop 08/23/17 at 00:16; Status UNV Pneumococcal Polyvalent Vaccine (Pneumovax 23) 0.5 ml ONCE ONCE VAX IM ; Start 08/23/17 at 09:00; Stop 08/23/17 at 09:01; Status DC Famotidine (Pepcid Vial) 20 mg BID IVP Last administered on 08/23/17 09:27; Start 08/23/17 at 09:00 Famotidine (Pepcid Vial) 20 mg 1X ONCE IVP Last administered on 08/23/17 02: 38; Start 08/23/17 at 02:30; Stop 08/23/17 at 02:31; Status DC Sodium Chloride 1,000 ml @ 150 mls/hr Q6H40M IV Last administered on 09:10; Start 08/23/17 at 02:30 Active Scripts Active Percocet 5-325 Mg Tablet (Oxycodone/Acetaminophen) 1 Each Tablet 1-2 Tab PO Q6HRS PRN Allergies Allergies: Coded Allergies: No Known Drug Allergies (Unverified , 07/05/17) ROS Review of System Not obtainable Physical Exam Physical Examination PHYSICAL EXAMINATION: Vital signs: see above. General appearance is normal and in no acute distress. HEENT: Normocephalic and nontraumatic. Eyes, nose, ears, and throat are unremarkable. Neck is supple. No lymphadenopathy. No bruits are heard over the carotid artery. No crepitus. NEUROLOGIC: He is intubated and sedated in the ICU. People do react to light. Reflexes are 1+. Plantar responses are silent. Vitals VITALS Vital Signs Date Time Temp Pulse Resp B/P (MAP) Pulse Ox O2 Delivery O2 Flow Rate FiO2 08/23/17 08:15 100 Ventilator 08/23/17 08:00 97.7 46 16 102/43 (62) 97.7 Labs Labs Laboratory Tests Test 08/22/17 16:20 08/22/17 16:48 08/22/17 18:15 08/22/17 18:58 White Blood Count 3.9 x10^3/uL (4.0-11.0) Red Blood Count 3.56 x10^6/uL (4.30-5.70) Hemoglobin 12.9 g/dL (13.0-17.5) Hematocrit 38.1 % (39.0-53.0) Mean Corpuscular Volume 107 fL (79-100) Mean Corpuscular Hemoglobin 36 pg (25-35) Mean Corpuscular Hemoglobin Concent 34 g/dL (31-37) Red Cell Distribution Width 12.6 % (11.5-14.5) Platelet Count 327 x10^3/uL (140-400) Neutrophils (%) (Auto) 49 % (31-73) Lymphocytes (%) (Auto) 43 % (24-48) Monocytes (%) (Auto) 5 % (0-9) Eosinophils (%) (Auto) 3 % (0-3) Basophils (%) (Auto) 1 % (0-3) Neutrophils # (Auto) 1.9 x10^3uL (1.8-7.7) Lymphocytes # (Auto) 1.7 x10^3/uL (1.0-4.8) Monocytes # (Auto) 0.2 x10^3/uL (0.0-1.1) Eosinophils # (Auto) 0.1 x10^3/uL (0.0-0.7) Basophils # (Auto) 0.0 x10^3/uL (0.0-0.2) Sodium Level 140 mmol/L (136-145) Potassium Level 4.4 mmol/L (3.5-5.1) Chloride Level 105 mmol/L (98-107) Carbon Dioxide Level 27 mmol/L (21-32) Anion Gap 8 (6-14) Blood Urea Nitrogen 9 mg/dL (8-26) Creatinine 0.9 mg/dL (0.7-1.3) Estimated GFR (Cockcroft-Gault) 122.5 BUN/Creatinine Ratio 10 (6-20) Glucose Level 93 mg/dL (70-99) Lactic Acid Level 1.2 mmol/L (0.4-2.0) Calcium Level 9.2 mg/dL (8.5-10.1) Magnesium Level 2.0 mg/dL (1.8-2.4) Total Bilirubin 0.4 mg/dL (0.2-1.0) Direct Bilirubin 0.1 mg/dL (0.0-0.2) Aspartate Amino Transf (AST/SGOT) 37 U/L (15-37) Alanine Aminotransferase (ALT/SGPT) 21 U/L (16-63) Alkaline Phosphatase 81 U/L (46-116) Ammonia 38 mcmol/L (11-34) Troponin I Quantitative < 0.017 ng/mL (0.000-0.055) Total Protein 7.3 g/dL (6.4-8.2) Albumin 4.0 g/dL (3.4-5.0) Albumin/Globulin Ratio 1.2 (1.0-1.7) Glucose (Fingerstick) 98 mg/dL (70-99) O2 Saturation 99 % (92-99) Arterial Blood pH 7.32 (7.35-7.45) Arterial Blood pCO2 at Patient Temp 51 mmHg (35-46) Arterial Blood pO2 at Patient Temp 200 mmHg (85-108) Arterial Blood HCO3 25 mmol/L (21-28) Arterial Blood Base Excess -1 mmol/L (-3-3) FiO2 50 Urine Collection Type U cath Urine Color Yellow Urine Clarity Hazy Urine pH 5.5 Urine Specific [place] 1.025 Urine Protein Negative mg/dL (NEG-TRACE) Urine Glucose (UA) Negative mg/dL (NEG) Urine Ketones (Stick) Negative mg/dL (NEG) Urine Blood Negative (NEG) Urine Nitrite Negative (NEG) Urine Bilirubin Negative (NEG) Urine Urobilinogen Dipstick 0.2 mg/dL (0.2 mg/dL) Urine Leukocyte Esterase Negative (NEG) Urine RBC Occ /HPF (0-2) Urine WBC 0 /HPF (0-4) Urine Squamous Epithelial Cells Few /LPF Urine Transitional Epithelial Cells Occ /LPF Urine Bacteria 0 /HPF (0-FEW) Urine Mucus Marked /LPF Urine Opiates Screen Neg (NEG) Urine Methadone Screen Neg (NEG) Urine Barbiturates Neg (NEG) Urine Phencyclidine Screen Neg (NEG) Urine Amphetamine/Methamphetamine Neg (NEG) Urine Benzodiazepines Screen Pos (NEG) Urine Cocaine Screen Neg (NEG) Urine Cannabinoids Screen Pos (NEG) Urine Ethyl Alcohol Neg (NEG) Test 08/22/17 21:12 08/23/17 05:23 08/23/17 08:15 Glucose (Fingerstick) 77 mg/dL (70-99) White Blood Count 3.0 x10^3/uL (4.0-11.0) Red Blood Count 3.20 x10^6/uL (4.30-5.70) Hemoglobin 11.7 g/dL (13.0-17.5) Hematocrit 34.8 % (39.0-53.0) Mean Corpuscular Volume 109 fL (79-100) Mean Corpuscular Hemoglobin 37 pg (25-35) Mean Corpuscular Hemoglobin Concent 34 g/dL (31-37) Red Cell Distribution Width 12.7 % (11.5-14.5) Platelet Count 285 x10^3/uL (140-400) Neutrophils (%) (Auto) 29 % (31-73) Lymphocytes (%) (Auto) 60 % (24-48) Monocytes (%) (Auto) 7 % (0-9) Eosinophils (%) (Auto) 4 % (0-3) Basophils (%) (Auto) 1 % (0-3) Neutrophils # (Auto) 0.8 x10^3uL (1.8-7.7) Lymphocytes # (Auto) 1.8 x10^3/uL (1.0-4.8) Monocytes # (Auto) 0.2 x10^3/uL (0.0-1.1) Eosinophils # (Auto) 0.1 x10^3/uL (0.0-0.7) Basophils # (Auto) 0.0 x10^3/uL (0.0-0.2) Sodium Level 142 mmol/L (136-145) Potassium Level 3.5 mmol/L (3.5-5.1) Chloride Level 108 mmol/L (98-107) Carbon Dioxide Level 25 mmol/L (21-32) Anion Gap 9 (6-14) Blood Urea Nitrogen 8 mg/dL (8-26) Creatinine 0.8 mg/dL (0.7-1.3) Estimated GFR (Cockcroft-Gault) 140.3 BUN/Creatinine Ratio 10 (6-20) Glucose Level 88 mg/dL (70-99) Calcium Level 8.4 mg/dL (8.5-10.1) Total Bilirubin 0.7 mg/dL (0.2-1.0) Aspartate Amino Transf (AST/SGOT) 42 U/L (15-37) Alanine Aminotransferase (ALT/SGPT) 21 U/L (16-63) Alkaline Phosphatase 57 U/L (46-116) Total Protein 6.4 g/dL (6.4-8.2) Albumin 3.2 g/dL (3.4-5.0) Albumin/Globulin Ratio 1.0 (1.0-1.7) O2 Saturation 97 % (92-99) Arterial Blood pH 7.38 (7.35-7.45) Arterial Blood pCO2 at Patient Temp 42 mmHg (35-46) Arterial Blood pO2 at Patient Temp 99 mmHg (85-108) Arterial Blood HCO3 25 mmol/L (21-28) Arterial Blood Base Excess -1 mmol/L (-3-3) FiO2 40 Laboratory Tests Test 08/22/17 16:20 08/22/17 16:48 08/22/17 18:15 08/22/17 18:58 White Blood Count 3.9 x10^3/uL (4.0-11.0) Red Blood Count 3.56 x10^6/uL (4.30-5.70) Hemoglobin 12.9 g/dL (13.0-17.5) Hematocrit 38.1 % (39.0-53.0) Mean Corpuscular Volume 107 fL (79-100) Mean Corpuscular Hemoglobin 36 pg (25-35) Mean Corpuscular Hemoglobin Concent 34 g/dL (31-37) Red Cell Distribution Width 12.6 % (11.5-14.5) Platelet Count 327 x10^3/uL (140-400) Neutrophils (%) (Auto) 49 % (31-73) Lymphocytes (%) (Auto) 43 % (24-48) Monocytes (%) (Auto) 5 % (0-9) Eosinophils (%) (Auto) 3 % (0-3) Basophils (%) (Auto) 1 % (0-3) Neutrophils # (Auto) 1.9 x10^3uL (1.8-7.7) Lymphocytes # (Auto) 1.7 x10^3/uL (1.0-4.8) Monocytes # (Auto) 0.2 x10^3/uL (0.0-1.1) Eosinophils # (Auto) 0.1 x10^3/uL (0.0-0.7) Basophils # (Auto) 0.0 x10^3/uL (0.0-0.2) Sodium Level 140 mmol/L (136-145) Potassium Level 4.4 mmol/L (3.5-5.1) Chloride Level 105 mmol/L (98-107) Carbon Dioxide Level 27 mmol/L (21-32) Anion Gap 8 (6-14) Blood Urea Nitrogen 9 mg/dL (8-26) Creatinine 0.9 mg/dL (0.7-1.3) Estimated GFR (Cockcroft-Gault) 122.5 BUN/Creatinine Ratio 10 (6-20) Glucose Level 93 mg/dL (70-99) Lactic Acid Level 1.2 mmol/L (0.4-2.0) Calcium Level 9.2 mg/dL (8.5-10.1) Magnesium Level 2.0 mg/dL (1.8-2.4) Total Bilirubin 0.4 mg/dL (0.2-1.0) Direct Bilirubin 0.1 mg/dL (0.0-0.2) Aspartate Amino Transf (AST/SGOT) 37 U/L (15-37) Alanine Aminotransferase (ALT/SGPT) 21 U/L (16-63) Alkaline Phosphatase 81 U/L (46-116) Ammonia 38 mcmol/L (11-34) Troponin I Quantitative < 0.017 ng/mL (0.000-0.055) Total Protein 7.3 g/dL (6.4-8.2) Albumin 4.0 g/dL (3.4-5.0) Albumin/Globulin Ratio 1.2 (1.0-1.7) Glucose (Fingerstick) 98 mg/dL (70-99) O2 Saturation 99 % (92-99) Arterial Blood pH 7.32 (7.35-7.45) Arterial Blood pCO2 at Patient Temp 51 mmHg (35-46) Arterial Blood pO2 at Patient Temp 200 mmHg (85-108) Arterial Blood HCO3 25 mmol/L (21-28) Arterial Blood Base Excess -1 mmol/L (-3-3) FiO2 50 Urine Collection Type U cath Urine Color Yellow Urine Clarity Hazy Urine pH 5.5 Urine Specific [place] 1.025 Urine Protein Negative mg/dL (NEG-TRACE) Urine Glucose (UA) Negative mg/dL (NEG) Urine Ketones (Stick) Negative mg/dL (NEG) Urine Blood Negative (NEG) Urine Nitrite Negative (NEG) Urine Bilirubin Negative (NEG) Urine Urobilinogen Dipstick 0.2 mg/dL (0.2 mg/dL) Urine Leukocyte Esterase Negative (NEG) Urine RBC Occ /HPF (0-2) Urine WBC 0 /HPF (0-4) Urine Squamous Epithelial Cells Few /LPF Urine Transitional Epithelial Cells Occ /LPF Urine Bacteria 0 /HPF (0-FEW) Urine Mucus Marked /LPF Urine Opiates Screen Neg (NEG) Urine Methadone Screen Neg (NEG) Urine Barbiturates Neg (NEG) Urine Phencyclidine Screen Neg (NEG) Urine Amphetamine/Methamphetamine Neg (NEG) Urine Benzodiazepines Screen Pos (NEG) Urine Cocaine Screen Neg (NEG) Urine Cannabinoids Screen Pos (NEG) Urine Ethyl Alcohol Neg (NEG) Test 08/22/17 21:12 08/23/17 05:23 08/23/17 08:15 Glucose (Fingerstick) 77 mg/dL (70-99) White Blood Count 3.0 x10^3/uL (4.0-11.0) Red Blood Count 3.20 x10^6/uL (4.30-5.70) Hemoglobin 11.7 g/dL (13.0-17.5) Hematocrit 34.8 % (39.0-53.0) Mean Corpuscular Volume 109 fL (79-100) Mean Corpuscular Hemoglobin 37 pg (25-35) Mean Corpuscular Hemoglobin Concent 34 g/dL (31-37) Red Cell Distribution Width 12.7 % (11.5-14.5) Platelet Count 285 x10^3/uL (140-400) Neutrophils (%) (Auto) 29 % (31-73) Lymphocytes (%) (Auto) 60 % (24-48) Monocytes (%) (Auto) 7 % (0-9) Eosinophils (%) (Auto) 4 % (0-3) Basophils (%) (Auto) 1 % (0-3) Neutrophils # (Auto) 0.8 x10^3uL (1.8-7.7) Lymphocytes # (Auto) 1.8 x10^3/uL (1.0-4.8) Monocytes # (Auto) 0.2 x10^3/uL (0.0-1.1) Eosinophils # (Auto) 0.1 x10^3/uL (0.0-0.7) Basophils # (Auto) 0.0 x10^3/uL (0.0-0.2) Sodium Level 142 mmol/L (136-145) Potassium Level 3.5 mmol/L (3.5-5.1) Chloride Level 108 mmol/L (98-107) Carbon Dioxide Level 25 mmol/L (21-32) Anion Gap 9 (6-14) Blood Urea Nitrogen 8 mg/dL (8-26) Creatinine 0.8 mg/dL (0.7-1.3) Estimated GFR (Cockcroft-Gault) 140.3 BUN/Creatinine Ratio 10 (6-20) Glucose Level 88 mg/dL (70-99) Calcium Level 8.4 mg/dL (8.5-10.1) Total Bilirubin 0.7 mg/dL (0.2-1.0) Aspartate Amino Transf (AST/SGOT) 42 U/L (15-37) Alanine Aminotransferase (ALT/SGPT) 21 U/L (16-63) Alkaline Phosphatase 57 U/L (46-116) Total Protein 6.4 g/dL (6.4-8.2) Albumin 3.2 g/dL (3.4-5.0) Albumin/Globulin Ratio 1.0 (1.0-1.7) O2 Saturation 97 % (92-99) Arterial Blood pH 7.38 (7.35-7.45) Arterial Blood pCO2 at Patient Temp 42 mmHg (35-46) Arterial Blood pO2 at Patient Temp 99 mmHg (85-108) Arterial Blood HCO3 25 mmol/L (21-28) Arterial Blood Base Excess -1 mmol/L (-3-3) FiO2 40 Images Images T head without contrast 08/22/2017 CLINICAL INDICATION: Altered mental status. COMPARISON: None. TECHNIQUE: Multiple CT images of the head were obtained without contrast according to standard protocol. Procedure dose FINDINGS: No acute intracranial hemorrhage or extra-axial fluid collection. No midline shift. The pablo-white matter interfaces are maintained. The basal cisterns are patent. The ventricles and subarachnoid spaces are normal in size and configuration for age. There is mild ethmoid sinus mucosal thickening. IMPRESSION: 1. No acute intracranial hemorrhage. 2. Mild ethmoid sinus mucosal thickening. Assessment/Plan Assessment/Plan Impression: Seizures, possibly related to marijuana or other substance ingestion. Recommendations: MRI of the brain EEG, which will be problematic because he is so combative when taken off sedation. Hold on lumbar puncture We have initiated levetiracetam Will discuss with family when available. Thank you for letting me help with the patient's care. JOHN YADAV MD Aug 23, 2017 10:12
--- NOTE | 2017-08-23 12:56 | PDOC ---
PULMONARY PROGRESS NOTES Vitals Vital Signs Date Time Temp Pulse Resp B/P (MAP) Pulse Ox O2 Delivery O2 Flow Rate FiO2 08/23/17 11:59 100 Ventilator 08/23/17 08:00 97.7 46 16 102/43 (62) 97.7 Labs Laboratory Tests Test 08/22/17 16:20 08/22/17 16:48 08/22/17 18:15 08/22/17 18:58 White Blood Count 3.9 x10^3/uL (4.0-11.0) Red Blood Count 3.56 x10^6/uL (4.30-5.70) Hemoglobin 12.9 g/dL (13.0-17.5) Hematocrit 38.1 % (39.0-53.0) Mean Corpuscular Volume 107 fL (79-100) Mean Corpuscular Hemoglobin 36 pg (25-35) Mean Corpuscular Hemoglobin Concent 34 g/dL (31-37) Red Cell Distribution Width 12.6 % (11.5-14.5) Platelet Count 327 x10^3/uL (140-400) Neutrophils (%) (Auto) 49 % (31-73) Lymphocytes (%) (Auto) 43 % (24-48) Monocytes (%) (Auto) 5 % (0-9) Eosinophils (%) (Auto) 3 % (0-3) Basophils (%) (Auto) 1 % (0-3) Neutrophils # (Auto) 1.9 x10^3uL (1.8-7.7) Lymphocytes # (Auto) 1.7 x10^3/uL (1.0-4.8) Monocytes # (Auto) 0.2 x10^3/uL (0.0-1.1) Eosinophils # (Auto) 0.1 x10^3/uL (0.0-0.7) Basophils # (Auto) 0.0 x10^3/uL (0.0-0.2) Sodium Level 140 mmol/L (136-145) Potassium Level 4.4 mmol/L (3.5-5.1) Chloride Level 105 mmol/L (98-107) Carbon Dioxide Level 27 mmol/L (21-32) Anion Gap 8 (6-14) Blood Urea Nitrogen 9 mg/dL (8-26) Creatinine 0.9 mg/dL (0.7-1.3) Estimated GFR (Cockcroft-Gault) 122.5 BUN/Creatinine Ratio 10 (6-20) Glucose Level 93 mg/dL (70-99) Lactic Acid Level 1.2 mmol/L (0.4-2.0) Calcium Level 9.2 mg/dL (8.5-10.1) Magnesium Level 2.0 mg/dL (1.8-2.4) Total Bilirubin 0.4 mg/dL (0.2-1.0) Direct Bilirubin 0.1 mg/dL (0.0-0.2) Aspartate Amino Transf (AST/SGOT) 37 U/L (15-37) Alanine Aminotransferase (ALT/SGPT) 21 U/L (16-63) Alkaline Phosphatase 81 U/L (46-116) Ammonia 38 mcmol/L (11-34) Troponin I Quantitative < 0.017 ng/mL (0.000-0.055) Total Protein 7.3 g/dL (6.4-8.2) Albumin 4.0 g/dL (3.4-5.0) Albumin/Globulin Ratio 1.2 (1.0-1.7) Glucose (Fingerstick) 98 mg/dL (70-99) O2 Saturation 99 % (92-99) Arterial Blood pH 7.32 (7.35-7.45) Arterial Blood pCO2 at Patient Temp 51 mmHg (35-46) Arterial Blood pO2 at Patient Temp 200 mmHg (85-108) Arterial Blood HCO3 25 mmol/L (21-28) Arterial Blood Base Excess -1 mmol/L (-3-3) FiO2 50 Urine Collection Type U cath Urine Color Yellow Urine Clarity Hazy Urine pH 5.5 Urine Specific Raven 1.025 Urine Protein Negative mg/dL (NEG-TRACE) Urine Glucose (UA) Negative mg/dL (NEG) Urine Ketones (Stick) Negative mg/dL (NEG) Urine Blood Negative (NEG) Urine Nitrite Negative (NEG) Urine Bilirubin Negative (NEG) Urine Urobilinogen Dipstick 0.2 mg/dL (0.2 mg/dL) Urine Leukocyte Esterase Negative (NEG) Urine RBC Occ /HPF (0-2) Urine WBC 0 /HPF (0-4) Urine Squamous Epithelial Cells Few /LPF Urine Transitional Epithelial Cells Occ /LPF Urine Bacteria 0 /HPF (0-FEW) Urine Mucus Marked /LPF Urine Opiates Screen Neg (NEG) Urine Methadone Screen Neg (NEG) Urine Barbiturates Neg (NEG) Urine Phencyclidine Screen Neg (NEG) Urine Amphetamine/Methamphetamine Neg (NEG) Urine Benzodiazepines Screen Pos (NEG) Urine Cocaine Screen Neg (NEG) Urine Cannabinoids Screen Pos (NEG) Urine Ethyl Alcohol Neg (NEG) Test 08/22/17 21:12 08/23/17 05:23 08/23/17 08:15 Glucose (Fingerstick) 77 mg/dL (70-99) White Blood Count 3.0 x10^3/uL (4.0-11.0) Red Blood Count 3.20 x10^6/uL (4.30-5.70) Hemoglobin 11.7 g/dL (13.0-17.5) Hematocrit 34.8 % (39.0-53.0) Mean Corpuscular Volume 109 fL (79-100) Mean Corpuscular Hemoglobin 37 pg (25-35) Mean Corpuscular Hemoglobin Concent 34 g/dL (31-37) Red Cell Distribution Width 12.7 % (11.5-14.5) Platelet Count 285 x10^3/uL (140-400) Neutrophils (%) (Auto) 29 % (31-73) Lymphocytes (%) (Auto) 60 % (24-48) Monocytes (%) (Auto) 7 % (0-9) Eosinophils (%) (Auto) 4 % (0-3) Basophils (%) (Auto) 1 % (0-3) Neutrophils # (Auto) 0.8 x10^3uL (1.8-7.7) Lymphocytes # (Auto) 1.8 x10^3/uL (1.0-4.8) Monocytes # (Auto) 0.2 x10^3/uL (0.0-1.1) Eosinophils # (Auto) 0.1 x10^3/uL (0.0-0.7) Basophils # (Auto) 0.0 x10^3/uL (0.0-0.2) Segmented Neutrophils % 33 % (35-66) Lymphocytes % 61 % (24-48) Monocytes % 4 % (0-10) Eosinophils % 2 % (0-5) Platelet Estimate Adequate (ADEQUATE) Macrocytosis Present Sodium Level 142 mmol/L (136-145) Potassium Level 3.5 mmol/L (3.5-5.1) Chloride Level 108 mmol/L (98-107) Carbon Dioxide Level 25 mmol/L (21-32) Anion Gap 9 (6-14) Blood Urea Nitrogen 8 mg/dL (8-26) Creatinine 0.8 mg/dL (0.7-1.3) Estimated GFR (Cockcroft-Gault) 140.3 BUN/Creatinine Ratio 10 (6-20) Glucose Level 88 mg/dL (70-99) Calcium Level 8.4 mg/dL (8.5-10.1) Total Bilirubin 0.7 mg/dL (0.2-1.0) Aspartate Amino Transf (AST/SGOT) 42 U/L (15-37) Alanine Aminotransferase (ALT/SGPT) 21 U/L (16-63) Alkaline Phosphatase 57 U/L (46-116) Total Protein 6.4 g/dL (6.4-8.2) Albumin 3.2 g/dL (3.4-5.0) Albumin/Globulin Ratio 1.0 (1.0-1.7) Vitamin B12 Level 461 pg/mL (247-911) Serum Folate 12.10 ng/ml (3.2-20.0) O2 Saturation 97 % (92-99) Arterial Blood pH 7.38 (7.35-7.45) Arterial Blood pCO2 at Patient Temp 42 mmHg (35-46) Arterial Blood pO2 at Patient Temp 99 mmHg (85-108) Arterial Blood HCO3 25 mmol/L (21-28) Arterial Blood Base Excess -1 mmol/L (-3-3) FiO2 40 Laboratory Tests Test 08/22/17 16:20 08/22/17 16:48 08/22/17 18:15 08/22/17 18:58 White Blood Count 3.9 x10^3/uL (4.0-11.0) Red Blood Count 3.56 x10^6/uL (4.30-5.70) Hemoglobin 12.9 g/dL (13.0-17.5) Hematocrit 38.1 % (39.0-53.0) Mean Corpuscular Volume 107 fL (79-100) Mean Corpuscular Hemoglobin 36 pg (25-35) Mean Corpuscular Hemoglobin Concent 34 g/dL (31-37) Red Cell Distribution Width 12.6 % (11.5-14.5) Platelet Count 327 x10^3/uL (140-400) Neutrophils (%) (Auto) 49 % (31-73) Lymphocytes (%) (Auto) 43 % (24-48) Monocytes (%) (Auto) 5 % (0-9) Eosinophils (%) (Auto) 3 % (0-3) Basophils (%) (Auto) 1 % (0-3) Neutrophils # (Auto) 1.9 x10^3uL (1.8-7.7) Lymphocytes # (Auto) 1.7 x10^3/uL (1.0-4.8) Monocytes # (Auto) 0.2 x10^3/uL (0.0-1.1) Eosinophils # (Auto) 0.1 x10^3/uL (0.0-0.7) Basophils # (Auto) 0.0 x10^3/uL (0.0-0.2) Sodium Level 140 mmol/L (136-145) Potassium Level 4.4 mmol/L (3.5-5.1) Chloride Level 105 mmol/L (98-107) Carbon Dioxide Level 27 mmol/L (21-32) Anion Gap 8 (6-14) Blood Urea Nitrogen 9 mg/dL (8-26) Creatinine 0.9 mg/dL (0.7-1.3) Estimated GFR (Cockcroft-Gault) 122.5 BUN/Creatinine Ratio 10 (6-20) Glucose Level 93 mg/dL (70-99) Lactic Acid Level 1.2 mmol/L (0.4-2.0) Calcium Level 9.2 mg/dL (8.5-10.1) Magnesium Level 2.0 mg/dL (1.8-2.4) Total Bilirubin 0.4 mg/dL (0.2-1.0) Direct Bilirubin 0.1 mg/dL (0.0-0.2) Aspartate Amino Transf (AST/SGOT) 37 U/L (15-37) Alanine Aminotransferase (ALT/SGPT) 21 U/L (16-63) Alkaline Phosphatase 81 U/L (46-116) Ammonia 38 mcmol/L (11-34) Troponin I Quantitative < 0.017 ng/mL (0.000-0.055) Total Protein 7.3 g/dL (6.4-8.2) Albumin 4.0 g/dL (3.4-5.0) Albumin/Globulin Ratio 1.2 (1.0-1.7) Glucose (Fingerstick) 98 mg/dL (70-99) O2 Saturation 99 % (92-99) Arterial Blood pH 7.32 (7.35-7.45) Arterial Blood pCO2 at Patient Temp 51 mmHg (35-46) Arterial Blood pO2 at Patient Temp 200 mmHg (85-108) Arterial Blood HCO3 25 mmol/L (21-28) Arterial Blood Base Excess -1 mmol/L (-3-3) FiO2 50 Urine Collection Type U cath Urine Color Yellow Urine Clarity Hazy Urine pH 5.5 Urine Specific Raven 1.025 Urine Protein Negative mg/dL (NEG-TRACE) Urine Glucose (UA) Negative mg/dL (NEG) Urine Ketones (Stick) Negative mg/dL (NEG) Urine Blood Negative (NEG) Urine Nitrite Negative (NEG) Urine Bilirubin Negative (NEG) Urine Urobilinogen Dipstick 0.2 mg/dL (0.2 mg/dL) Urine Leukocyte Esterase Negative (NEG) Urine RBC Occ /HPF (0-2) Urine WBC 0 /HPF (0-4) Urine Squamous Epithelial Cells Few /LPF Urine Transitional Epithelial Cells Occ /LPF Urine Bacteria 0 /HPF (0-FEW) Urine Mucus Marked /LPF Urine Opiates Screen Neg (NEG) Urine Methadone Screen Neg (NEG) Urine Barbiturates Neg (NEG) Urine Phencyclidine Screen Neg (NEG) Urine Amphetamine/Methamphetamine Neg (NEG) Urine Benzodiazepines Screen Pos (NEG) Urine Cocaine Screen Neg (NEG) Urine Cannabinoids Screen Pos (NEG) Urine Ethyl Alcohol Neg (NEG) Test 08/22/17 21:12 08/23/17 05:23 08/23/17 08:15 Glucose (Fingerstick) 77 mg/dL (70-99) White Blood Count 3.0 x10^3/uL (4.0-11.0) Red Blood Count 3.20 x10^6/uL (4.30-5.70) Hemoglobin 11.7 g/dL (13.0-17.5) Hematocrit 34.8 % (39.0-53.0) Mean Corpuscular Volume 109 fL (79-100) Mean Corpuscular Hemoglobin 37 pg (25-35) Mean Corpuscular Hemoglobin Concent 34 g/dL (31-37) Red Cell Distribution Width 12.7 % (11.5-14.5) Platelet Count 285 x10^3/uL (140-400) Neutrophils (%) (Auto) 29 % (31-73) Lymphocytes (%) (Auto) 60 % (24-48) Monocytes (%) (Auto) 7 % (0-9) Eosinophils (%) (Auto) 4 % (0-3) Basophils (%) (Auto) 1 % (0-3) Neutrophils # (Auto) 0.8 x10^3uL (1.8-7.7) Lymphocytes # (Auto) 1.8 x10^3/uL (1.0-4.8) Monocytes # (Auto) 0.2 x10^3/uL (0.0-1.1) Eosinophils # (Auto) 0.1 x10^3/uL (0.0-0.7) Basophils # (Auto) 0.0 x10^3/uL (0.0-0.2) Segmented Neutrophils % 33 % (35-66) Lymphocytes % 61 % (24-48) Monocytes % 4 % (0-10) Eosinophils % 2 % (0-5) Platelet Estimate Adequate (ADEQUATE) Macrocytosis Present Sodium Level 142 mmol/L (136-145) Potassium Level 3.5 mmol/L (3.5-5.1) Chloride Level 108 mmol/L (98-107) Carbon Dioxide Level 25 mmol/L (21-32) Anion Gap 9 (6-14) Blood Urea Nitrogen 8 mg/dL (8-26) Creatinine 0.8 mg/dL (0.7-1.3) Estimated GFR (Cockcroft-Gault) 140.3 BUN/Creatinine Ratio 10 (6-20) Glucose Level 88 mg/dL (70-99) Calcium Level 8.4 mg/dL (8.5-10.1) Total Bilirubin 0.7 mg/dL (0.2-1.0) Aspartate Amino Transf (AST/SGOT) 42 U/L (15-37) Alanine Aminotransferase (ALT/SGPT) 21 U/L (16-63) Alkaline Phosphatase 57 U/L (46-116) Total Protein 6.4 g/dL (6.4-8.2) Albumin 3.2 g/dL (3.4-5.0) Albumin/Globulin Ratio 1.0 (1.0-1.7) Vitamin B12 Level 461 pg/mL (247-911) Serum Folate 12.10 ng/ml (3.2-20.0) O2 Saturation 97 % (92-99) Arterial Blood pH 7.38 (7.35-7.45) Arterial Blood pCO2 at Patient Temp 42 mmHg (35-46) Arterial Blood pO2 at Patient Temp 99 mmHg (85-108) Arterial Blood HCO3 25 mmol/L (21-28) Arterial Blood Base Excess -1 mmol/L (-3-3) FiO2 40 Medications Active Scripts Medications Dose Route/Sig Max Daily Dose Days Date Category Percocet 5-325 Mg Tablet (Oxycodone/Acetaminophen) 1 Each Tablet 1-2 Tab PO Q6HRS PRN 07/05/17 Rx Impression . DICTATED [id number] EXTUBATE ONCE NEURO WORK IS COMPLETE TEE CASTRO MD Aug 23, 2017 12:56
--- NOTE | 2017-08-23 14:34 | PDOC ---
PROGRESS NOTES Vitals Vitals Vital Signs Date Time Temp Pulse Resp B/P (MAP) Pulse Ox O2 Delivery O2 Flow Rate FiO2 08/23/17 13:00 64 16 123/75 (91) 100 Ventilator 08/23/17 12:00 99.6 99.6 Physical Exam General: moderate distress, Other Heart: Regular rate Abdomen: Normal bowel sounds, Soft Extremities: No clubbing, No cyanosis, No edema, Normal pulses Skin: No rashes, Other Labs LABS Laboratory Tests Test 08/22/17 16:20 08/22/17 16:48 08/22/17 18:15 08/22/17 18:58 White Blood Count 3.9 x10^3/uL (4.0-11.0) Red Blood Count 3.56 x10^6/uL (4.30-5.70) Hemoglobin 12.9 g/dL (13.0-17.5) Hematocrit 38.1 % (39.0-53.0) Mean Corpuscular Volume 107 fL (79-100) Mean Corpuscular Hemoglobin 36 pg (25-35) Mean Corpuscular Hemoglobin Concent 34 g/dL (31-37) Red Cell Distribution Width 12.6 % (11.5-14.5) Platelet Count 327 x10^3/uL (140-400) Neutrophils (%) (Auto) 49 % (31-73) Lymphocytes (%) (Auto) 43 % (24-48) Monocytes (%) (Auto) 5 % (0-9) Eosinophils (%) (Auto) 3 % (0-3) Basophils (%) (Auto) 1 % (0-3) Neutrophils # (Auto) 1.9 x10^3uL (1.8-7.7) Lymphocytes # (Auto) 1.7 x10^3/uL (1.0-4.8) Monocytes # (Auto) 0.2 x10^3/uL (0.0-1.1) Eosinophils # (Auto) 0.1 x10^3/uL (0.0-0.7) Basophils # (Auto) 0.0 x10^3/uL (0.0-0.2) Sodium Level 140 mmol/L (136-145) Potassium Level 4.4 mmol/L (3.5-5.1) Chloride Level 105 mmol/L (98-107) Carbon Dioxide Level 27 mmol/L (21-32) Anion Gap 8 (6-14) Blood Urea Nitrogen 9 mg/dL (8-26) Creatinine 0.9 mg/dL (0.7-1.3) Estimated GFR (Cockcroft-Gault) 122.5 BUN/Creatinine Ratio 10 (6-20) Glucose Level 93 mg/dL (70-99) Lactic Acid Level 1.2 mmol/L (0.4-2.0) Calcium Level 9.2 mg/dL (8.5-10.1) Magnesium Level 2.0 mg/dL (1.8-2.4) Total Bilirubin 0.4 mg/dL (0.2-1.0) Direct Bilirubin 0.1 mg/dL (0.0-0.2) Aspartate Amino Transf (AST/SGOT) 37 U/L (15-37) Alanine Aminotransferase (ALT/SGPT) 21 U/L (16-63) Alkaline Phosphatase 81 U/L (46-116) Ammonia 38 mcmol/L (11-34) Troponin I Quantitative < 0.017 ng/mL (0.000-0.055) Total Protein 7.3 g/dL (6.4-8.2) Albumin 4.0 g/dL (3.4-5.0) Albumin/Globulin Ratio 1.2 (1.0-1.7) Glucose (Fingerstick) 98 mg/dL (70-99) O2 Saturation 99 % (92-99) Arterial Blood pH 7.32 (7.35-7.45) Arterial Blood pCO2 at Patient Temp 51 mmHg (35-46) Arterial Blood pO2 at Patient Temp 200 mmHg (85-108) Arterial Blood HCO3 25 mmol/L (21-28) Arterial Blood Base Excess -1 mmol/L (-3-3) FiO2 50 Urine Collection Type U cath Urine Color Yellow Urine Clarity Hazy Urine pH 5.5 Urine Specific [place] 1.025 Urine Protein Negative mg/dL (NEG-TRACE) Urine Glucose (UA) Negative mg/dL (NEG) Urine Ketones (Stick) Negative mg/dL (NEG) Urine Blood Negative (NEG) Urine Nitrite Negative (NEG) Urine Bilirubin Negative (NEG) Urine Urobilinogen Dipstick 0.2 mg/dL (0.2 mg/dL) Urine Leukocyte Esterase Negative (NEG) Urine RBC Occ /HPF (0-2) Urine WBC 0 /HPF (0-4) Urine Squamous Epithelial Cells Few /LPF Urine Transitional Epithelial Cells Occ /LPF Urine Bacteria 0 /HPF (0-FEW) Urine Mucus Marked /LPF Urine Opiates Screen Neg (NEG) Urine Methadone Screen Neg (NEG) Urine Barbiturates Neg (NEG) Urine Phencyclidine Screen Neg (NEG) Urine Amphetamine/Methamphetamine Neg (NEG) Urine Benzodiazepines Screen Pos (NEG) Urine Cocaine Screen Neg (NEG) Urine Cannabinoids Screen Pos (NEG) Urine Ethyl Alcohol Neg (NEG) Test 08/22/17 21:12 08/23/17 05:23 08/23/17 08:15 Glucose (Fingerstick) 77 mg/dL (70-99) White Blood Count 3.0 x10^3/uL (4.0-11.0) Red Blood Count 3.20 x10^6/uL (4.30-5.70) Hemoglobin 11.7 g/dL (13.0-17.5) Hematocrit 34.8 % (39.0-53.0) Mean Corpuscular Volume 109 fL (79-100) Mean Corpuscular Hemoglobin 37 pg (25-35) Mean Corpuscular Hemoglobin Concent 34 g/dL (31-37) Red Cell Distribution Width 12.7 % (11.5-14.5) Platelet Count 285 x10^3/uL (140-400) Neutrophils (%) (Auto) 29 % (31-73) Lymphocytes (%) (Auto) 60 % (24-48) Monocytes (%) (Auto) 7 % (0-9) Eosinophils (%) (Auto) 4 % (0-3) Basophils (%) (Auto) 1 % (0-3) Neutrophils # (Auto) 0.8 x10^3uL (1.8-7.7) Lymphocytes # (Auto) 1.8 x10^3/uL (1.0-4.8) Monocytes # (Auto) 0.2 x10^3/uL (0.0-1.1) Eosinophils # (Auto) 0.1 x10^3/uL (0.0-0.7) Basophils # (Auto) 0.0 x10^3/uL (0.0-0.2) Segmented Neutrophils % 33 % (35-66) Lymphocytes % 61 % (24-48) Monocytes % 4 % (0-10) Eosinophils % 2 % (0-5) Platelet Estimate Adequate (ADEQUATE) Macrocytosis Present Sodium Level 142 mmol/L (136-145) Potassium Level 3.5 mmol/L (3.5-5.1) Chloride Level 108 mmol/L (98-107) Carbon Dioxide Level 25 mmol/L (21-32) Anion Gap 9 (6-14) Blood Urea Nitrogen 8 mg/dL (8-26) Creatinine 0.8 mg/dL (0.7-1.3) Estimated GFR (Cockcroft-Gault) 140.3 BUN/Creatinine Ratio 10 (6-20) Glucose Level 88 mg/dL (70-99) Calcium Level 8.4 mg/dL (8.5-10.1) Total Bilirubin 0.7 mg/dL (0.2-1.0) Aspartate Amino Transf (AST/SGOT) 42 U/L (15-37) Alanine Aminotransferase (ALT/SGPT) 21 U/L (16-63) Alkaline Phosphatase 57 U/L (46-116) Total Protein 6.4 g/dL (6.4-8.2) Albumin 3.2 g/dL (3.4-5.0) Albumin/Globulin Ratio 1.0 (1.0-1.7) Vitamin B12 Level 461 pg/mL (247-911) Serum Folate 12.10 ng/ml (3.2-20.0) O2 Saturation 97 % (92-99) Arterial Blood pH 7.38 (7.35-7.45) Arterial Blood pCO2 at Patient Temp 42 mmHg (35-46) Arterial Blood pO2 at Patient Temp 99 mmHg (85-108) Arterial Blood HCO3 25 mmol/L (21-28) Arterial Blood Base Excess -1 mmol/L (-3-3) FiO2 40 Assessment and Plan Assessmemt and Plan Problems Medical Problems: (1) Syncope and collapse Status: Acute VTE Prophylaxis Ordered VTE Prophylaxis Devices: No VTE Pharmacological Prophylaxi: Yes Assessment/Plan Assessment/Plan assessment acute encephalopathy, NOS, combative and agitated, possible psychosis, Seizure disorder, multiple small of activity seen in the ER, poss absence, Substance abuse, THC, suspect other reported Diabetes, NOS, blood sugars stable sinusitis on CT scan with report of facial pain, Azithromycin macrocytosis without anemia, check b12 and folate, plan ICU neurology consult EEG MRI HEAD when stable 33 min cc time Problems: Comment Review of Relevant I have reviewed the following items godwin (where applicable) has been applied. Labs Laboratory Tests Test 08/22/17 16:20 08/22/17 16:48 08/22/17 18:15 08/22/17 18:58 White Blood Count 3.9 x10^3/uL (4.0-11.0) Red Blood Count 3.56 x10^6/uL (4.30-5.70) Hemoglobin 12.9 g/dL (13.0-17.5) Hematocrit 38.1 % (39.0-53.0) Mean Corpuscular Volume 107 fL (79-100) Mean Corpuscular Hemoglobin 36 pg (25-35) Mean Corpuscular Hemoglobin Concent 34 g/dL (31-37) Red Cell Distribution Width 12.6 % (11.5-14.5) Platelet Count 327 x10^3/uL (140-400) Neutrophils (%) (Auto) 49 % (31-73) Lymphocytes (%) (Auto) 43 % (24-48) Monocytes (%) (Auto) 5 % (0-9) Eosinophils (%) (Auto) 3 % (0-3) Basophils (%) (Auto) 1 % (0-3) Neutrophils # (Auto) 1.9 x10^3uL (1.8-7.7) Lymphocytes # (Auto) 1.7 x10^3/uL (1.0-4.8) Monocytes # (Auto) 0.2 x10^3/uL (0.0-1.1) Eosinophils # (Auto) 0.1 x10^3/uL (0.0-0.7) Basophils # (Auto) 0.0 x10^3/uL (0.0-0.2) Sodium Level 140 mmol/L (136-145) Potassium Level 4.4 mmol/L (3.5-5.1) Chloride Level 105 mmol/L (98-107) Carbon Dioxide Level 27 mmol/L (21-32) Anion Gap 8 (6-14) Blood Urea Nitrogen 9 mg/dL (8-26) Creatinine 0.9 mg/dL (0.7-1.3) Estimated GFR (Cockcroft-Gault) 122.5 BUN/Creatinine Ratio 10 (6-20) Glucose Level 93 mg/dL (70-99) Lactic Acid Level 1.2 mmol/L (0.4-2.0) Calcium Level 9.2 mg/dL (8.5-10.1) Magnesium Level 2.0 mg/dL (1.8-2.4) Total Bilirubin 0.4 mg/dL (0.2-1.0) Direct Bilirubin 0.1 mg/dL (0.0-0.2) Aspartate Amino Transf (AST/SGOT) 37 U/L (15-37) Alanine Aminotransferase (ALT/SGPT) 21 U/L (16-63) Alkaline Phosphatase 81 U/L (46-116) Ammonia 38 mcmol/L (11-34) Troponin I Quantitative < 0.017 ng/mL (0.000-0.055) Total Protein 7.3 g/dL (6.4-8.2) Albumin 4.0 g/dL (3.4-5.0) Albumin/Globulin Ratio 1.2 (1.0-1.7) Glucose (Fingerstick) 98 mg/dL (70-99) O2 Saturation 99 % (92-99) Arterial Blood pH 7.32 (7.35-7.45) Arterial Blood pCO2 at Patient Temp 51 mmHg (35-46) Arterial Blood pO2 at Patient Temp 200 mmHg (85-108) Arterial Blood HCO3 25 mmol/L (21-28) Arterial Blood Base Excess -1 mmol/L (-3-3) FiO2 50 Urine Collection Type U cath Urine Color Yellow Urine Clarity Hazy Urine pH 5.5 Urine Specific [place] 1.025 Urine Protein Negative mg/dL (NEG-TRACE) Urine Glucose (UA) Negative mg/dL (NEG) Urine Ketones (Stick) Negative mg/dL (NEG) Urine Blood Negative (NEG) Urine Nitrite Negative (NEG) Urine Bilirubin Negative (NEG) Urine Urobilinogen Dipstick 0.2 mg/dL (0.2 mg/dL) Urine Leukocyte Esterase Negative (NEG) Urine RBC Occ /HPF (0-2) Urine WBC 0 /HPF (0-4) Urine Squamous Epithelial Cells Few /LPF Urine Transitional Epithelial Cells Occ /LPF Urine Bacteria 0 /HPF (0-FEW) Urine Mucus Marked /LPF Urine Opiates Screen Neg (NEG) Urine Methadone Screen Neg (NEG) Urine Barbiturates Neg (NEG) Urine Phencyclidine Screen Neg (NEG) Urine Amphetamine/Methamphetamine Neg (NEG) Urine Benzodiazepines Screen Pos (NEG) Urine Cocaine Screen Neg (NEG) Urine Cannabinoids Screen Pos (NEG) Urine Ethyl Alcohol Neg (NEG) Test 08/22/17 21:12 08/23/17 05:23 08/23/17 08:15 Glucose (Fingerstick) 77 mg/dL (70-99) White Blood Count 3.0 x10^3/uL (4.0-11.0) Red Blood Count 3.20 x10^6/uL (4.30-5.70) Hemoglobin 11.7 g/dL (13.0-17.5) Hematocrit 34.8 % (39.0-53.0) Mean Corpuscular Volume 109 fL (79-100) Mean Corpuscular Hemoglobin 37 pg (25-35) Mean Corpuscular Hemoglobin Concent 34 g/dL (31-37) Red Cell Distribution Width 12.7 % (11.5-14.5) Platelet Count 285 x10^3/uL (140-400) Neutrophils (%) (Auto) 29 % (31-73) Lymphocytes (%) (Auto) 60 % (24-48) Monocytes (%) (Auto) 7 % (0-9) Eosinophils (%) (Auto) 4 % (0-3) Basophils (%) (Auto) 1 % (0-3) Neutrophils # (Auto) 0.8 x10^3uL (1.8-7.7) Lymphocytes # (Auto) 1.8 x10^3/uL (1.0-4.8) Monocytes # (Auto) 0.2 x10^3/uL (0.0-1.1) Eosinophils # (Auto) 0.1 x10^3/uL (0.0-0.7) Basophils # (Auto) 0.0 x10^3/uL (0.0-0.2) Segmented Neutrophils % 33 % (35-66) Lymphocytes % 61 % (24-48) Monocytes % 4 % (0-10) Eosinophils % 2 % (0-5) Platelet Estimate Adequate (ADEQUATE) Macrocytosis Present Sodium Level 142 mmol/L (136-145) Potassium Level 3.5 mmol/L (3.5-5.1) Chloride Level 108 mmol/L (98-107) Carbon Dioxide Level 25 mmol/L (21-32) Anion Gap 9 (6-14) Blood Urea Nitrogen 8 mg/dL (8-26) Creatinine 0.8 mg/dL (0.7-1.3) Estimated GFR (Cockcroft-Gault) 140.3 BUN/Creatinine Ratio 10 (6-20) Glucose Level 88 mg/dL (70-99) Calcium Level 8.4 mg/dL (8.5-10.1) Total Bilirubin 0.7 mg/dL (0.2-1.0) Aspartate Amino Transf (AST/SGOT) 42 U/L (15-37) Alanine Aminotransferase (ALT/SGPT) 21 U/L (16-63) Alkaline Phosphatase 57 U/L (46-116) Total Protein 6.4 g/dL (6.4-8.2) Albumin 3.2 g/dL (3.4-5.0) Albumin/Globulin Ratio 1.0 (1.0-1.7) Vitamin B12 Level 461 pg/mL (247-911) Serum Folate 12.10 ng/ml (3.2-20.0) O2 Saturation 97 % (92-99) Arterial Blood pH 7.38 (7.35-7.45) Arterial Blood pCO2 at Patient Temp 42 mmHg (35-46) Arterial Blood pO2 at Patient Temp 99 mmHg (85-108) Arterial Blood HCO3 25 mmol/L (21-28) Arterial Blood Base Excess -1 mmol/L (-3-3) FiO2 40 Laboratory Tests Test 08/22/17 16:20 08/22/17 16:48 08/22/17 18:15 08/22/17 18:58 White Blood Count 3.9 x10^3/uL (4.0-11.0) Red Blood Count 3.56 x10^6/uL (4.30-5.70) Hemoglobin 12.9 g/dL (13.0-17.5) Hematocrit 38.1 % (39.0-53.0) Mean Corpuscular Volume 107 fL (79-100) Mean Corpuscular Hemoglobin 36 pg (25-35) Mean Corpuscular Hemoglobin Concent 34 g/dL (31-37) Red Cell Distribution Width 12.6 % (11.5-14.5) Platelet Count 327 x10^3/uL (140-400) Neutrophils (%) (Auto) 49 % (31-73) Lymphocytes (%) (Auto) 43 % (24-48) Monocytes (%) (Auto) 5 % (0-9) Eosinophils (%) (Auto) 3 % (0-3) Basophils (%) (Auto) 1 % (0-3) Neutrophils # (Auto) 1.9 x10^3uL (1.8-7.7) Lymphocytes # (Auto) 1.7 x10^3/uL (1.0-4.8) Monocytes # (Auto) 0.2 x10^3/uL (0.0-1.1) Eosinophils # (Auto) 0.1 x10^3/uL (0.0-0.7) Basophils # (Auto) 0.0 x10^3/uL (0.0-0.2) Sodium Level 140 mmol/L (136-145) Potassium Level 4.4 mmol/L (3.5-5.1) Chloride Level 105 mmol/L (98-107) Carbon Dioxide Level 27 mmol/L (21-32) Anion Gap 8 (6-14) Blood Urea Nitrogen 9 mg/dL (8-26) Creatinine 0.9 mg/dL (0.7-1.3) Estimated GFR (Cockcroft-Gault) 122.5 BUN/Creatinine Ratio 10 (6-20) Glucose Level 93 mg/dL (70-99) Lactic Acid Level 1.2 mmol/L (0.4-2.0) Calcium Level 9.2 mg/dL (8.5-10.1) Magnesium Level 2.0 mg/dL (1.8-2.4) Total Bilirubin 0.4 mg/dL (0.2-1.0) Direct Bilirubin 0.1 mg/dL (0.0-0.2) Aspartate Amino Transf (AST/SGOT) 37 U/L (15-37) Alanine Aminotransferase (ALT/SGPT) 21 U/L (16-63) Alkaline Phosphatase 81 U/L (46-116) Ammonia 38 mcmol/L (11-34) Troponin I Quantitative < 0.017 ng/mL (0.000-0.055) Total Protein 7.3 g/dL (6.4-8.2) Albumin 4.0 g/dL (3.4-5.0) Albumin/Globulin Ratio 1.2 (1.0-1.7) Glucose (Fingerstick) 98 mg/dL (70-99) O2 Saturation 99 % (92-99) Arterial Blood pH 7.32 (7.35-7.45) Arterial Blood pCO2 at Patient Temp 51 mmHg (35-46) Arterial Blood pO2 at Patient Temp 200 mmHg (85-108) Arterial Blood HCO3 25 mmol/L (21-28) Arterial Blood Base Excess -1 mmol/L (-3-3) FiO2 50 Urine Collection Type U cath Urine Color Yellow Urine Clarity Hazy Urine pH 5.5 Urine Specific [place] 1.025 Urine Protein Negative mg/dL (NEG-TRACE) Urine Glucose (UA) Negative mg/dL (NEG) Urine Ketones (Stick) Negative mg/dL (NEG) Urine Blood Negative (NEG) Urine Nitrite Negative (NEG) Urine Bilirubin Negative (NEG) Urine Urobilinogen Dipstick 0.2 mg/dL (0.2 mg/dL) Urine Leukocyte Esterase Negative (NEG) Urine RBC Occ /HPF (0-2) Urine WBC 0 /HPF (0-4) Urine Squamous Epithelial Cells Few /LPF Urine Transitional Epithelial Cells Occ /LPF Urine Bacteria 0 /HPF (0-FEW) Urine Mucus Marked /LPF Urine Opiates Screen Neg (NEG) Urine Methadone Screen Neg (NEG) Urine Barbiturates Neg (NEG) Urine Phencyclidine Screen Neg (NEG) Urine Amphetamine/Methamphetamine Neg (NEG) Urine Benzodiazepines Screen Pos (NEG) Urine Cocaine Screen Neg (NEG) Urine Cannabinoids Screen Pos (NEG) Urine Ethyl Alcohol Neg (NEG) Test 08/22/17 21:12 08/23/17 05:23 08/23/17 08:15 Glucose (Fingerstick) 77 mg/dL (70-99) White Blood Count 3.0 x10^3/uL (4.0-11.0) Red Blood Count 3.20 x10^6/uL (4.30-5.70) Hemoglobin 11.7 g/dL (13.0-17.5) Hematocrit 34.8 % (39.0-53.0) Mean Corpuscular Volume 109 fL (79-100) Mean Corpuscular Hemoglobin 37 pg (25-35) Mean Corpuscular Hemoglobin Concent 34 g/dL (31-37) Red Cell Distribution Width 12.7 % (11.5-14.5) Platelet Count 285 x10^3/uL (140-400) Neutrophils (%) (Auto) 29 % (31-73) Lymphocytes (%) (Auto) 60 % (24-48) Monocytes (%) (Auto) 7 % (0-9) Eosinophils (%) (Auto) 4 % (0-3) Basophils (%) (Auto) 1 % (0-3) Neutrophils # (Auto) 0.8 x10^3uL (1.8-7.7) Lymphocytes # (Auto) 1.8 x10^3/uL (1.0-4.8) Monocytes # (Auto) 0.2 x10^3/uL (0.0-1.1) Eosinophils # (Auto) 0.1 x10^3/uL (0.0-0.7) Basophils # (Auto) 0.0 x10^3/uL (0.0-0.2) Segmented Neutrophils % 33 % (35-66) Lymphocytes % 61 % (24-48) Monocytes % 4 % (0-10) Eosinophils % 2 % (0-5) Platelet Estimate Adequate (ADEQUATE) Macrocytosis Present Sodium Level 142 mmol/L (136-145) Potassium Level 3.5 mmol/L (3.5-5.1) Chloride Level 108 mmol/L (98-107) Carbon Dioxide Level 25 mmol/L (21-32) Anion Gap 9 (6-14) Blood Urea Nitrogen 8 mg/dL (8-26) Creatinine 0.8 mg/dL (0.7-1.3) Estimated GFR (Cockcroft-Gault) 140.3 BUN/Creatinine Ratio 10 (6-20) Glucose Level 88 mg/dL (70-99) Calcium Level 8.4 mg/dL (8.5-10.1) Total Bilirubin 0.7 mg/dL (0.2-1.0) Aspartate Amino Transf (AST/SGOT) 42 U/L (15-37) Alanine Aminotransferase (ALT/SGPT) 21 U/L (16-63) Alkaline Phosphatase 57 U/L (46-116) Total Protein 6.4 g/dL (6.4-8.2) Albumin 3.2 g/dL (3.4-5.0) Albumin/Globulin Ratio 1.0 (1.0-1.7) Vitamin B12 Level 461 pg/mL (247-911) Serum Folate 12.10 ng/ml (3.2-20.0) O2 Saturation 97 % (92-99) Arterial Blood pH 7.38 (7.35-7.45) Arterial Blood pCO2 at Patient Temp 42 mmHg (35-46) Arterial Blood pO2 at Patient Temp 99 mmHg (85-108) Arterial Blood HCO3 25 mmol/L (21-28) Arterial Blood Base Excess -1 mmol/L (-3-3) FiO2 40 Medications Current Medications Lorazepam (Ativan) 2 mg STK-MED ONCE .ROUTE ; Start 08/22/17 at 16:20; Stop 08/22/17 at 16:21; Status DC Lorazepam (Ativan) 2 mg 1X ONCE IV Last administered on 08/22/17 16:20; Start 08/22/17 at 16:30; Stop 08/22/17 at 16:31; Status DC Haloperidol Lactate (Haldol) 5 mg STK-MED ONCE .ROUTE ; Start 08/22/17 at 17:39 ; Stop 08/22/17 at 17:40; Status DC Succinylcholine Chloride (Anectine) 200 mg 1X ONCE IV Last administered on 17:58; Start 08/22/17 at 18:00; Stop 08/22/17 at 18:01; Status DC Etomidate (Amidate) 20 mg 1X ONCE IV Last administered on 08/22/17 17:57; Start 08/22/17 at 18:00; Stop 08/22/17 at 18:01; Status DC Haloperidol Lactate (Haldol) 10 mg 1X ONCE IM Last administered on 08/22/17 17:42; Start 08/22/17 at 18:00; Stop 08/22/17 at 18:01; Status DC Lorazepam (Ativan) 2 mg 1X ONCE IM Last administered on 08/22/17 17:42; Start 08/22/17 at 18:00; Stop 08/22/17 at 18:01; Status DC Propofol (Diprivan) 200 mg 1X ONCE IV Last administered on 08/22/17 18:02; Start 08/22/17 at 18:00; Stop 08/22/17 at 18:01; Status DC Propofol 20 ml @ 0 mls/hr 1X ONCE IV Last administered on 08/22/17 18:02; Start 08/22/17 at 18:00; Stop 08/22/17 at 18:01; Status DC Propofol 50 ml @ As Directed STK-MED ONCE IV ; Start 08/22/17 at 17:52; Stop at 17:53; Status DC Sodium Chloride 1,000 ml @ 125 mls/hr Q8H IV Last administered on 08/22/17 18 :06; Start 08/22/17 at 18:06; Stop 08/23/17 at 02:18; Status DC Propofol 50 ml @ As Directed STK-MED ONCE IV ; Start 08/22/17 at 18:17; Stop at 18:18; Status DC Vecuronium [place] (Norcuron Bolus) 10 mg 1X ONCE IV Last administered on 08/22 18:06; Start 08/22/17 at 18:30; Stop 08/22/17 at 18:31; Status DC Levetiracetam 500 mg/Dextrose 105 ml @ 420 mls/hr Q12HR IV ; Start 08/22/17 at 21:00; Stop 08/22/17 at 21:00; Status DC Levetiracetam 500 mg/Sodium Chloride 105 ml @ 420 mls/hr Q12HR IV Last administered on 08/23/17 09:27; Start 08/22/17 at 21:00 Lorazepam (Ativan) 1 mg PRN Q1HR PRN IV COMM; Start 08/22/17 at 20:15 Lorazepam (Ativan) 2 mg PRN Q1HR PRN IV COMM; Start 08/22/17 at 20:15 Propofol 100 ml @ 0 mls/hr CONT PRN IV PER PROTOCOL Last administered on 12:02; Start 08/22/17 at 20:15 Azithromycin 500 mg/Sodium Chloride 250 ml @ 250 mls/hr 1X ONCE IV Last administered on 08/22/17 21:59; Start 08/22/17 at 21:30; Stop 08/22/17 at 22:29 ; Status DC Azithromycin (Zithromax) 250 mg DAILY PO Last administered on 08/23/17 09:27; Start 08/23/17 at 09:00 Enoxaparin Sodium (Lovenox Per Pharmacy Prophylaxis Dosing) 1 each PRN DAILY PRN MC SEE COMMENTS; Start 08/22/17 at 23:00; Stop 08/23/17 at 08:19; Status DC Enoxaparin Sodium (Lovenox 40mg Syringe) 40 mg Q24H SQ Last administered on 23:43; Start 08/22/17 at 23:00 Pneumococcal Polyvalent Vaccine (Do NOT chart on this placeholder) 1 each 1X ONCE MC ; Start 08/23/17 at 00:15; Stop 08/23/17 at 00:16; Status UNV Pneumococcal Polyvalent Vaccine (Pneumovax 23) 0.5 ml ONCE ONCE VAX IM ; Start 08/23/17 at 09:00; Stop 08/23/17 at 09:01; Status DC Famotidine (Pepcid Vial) 20 mg BID IVP Last administered on 08/23/17 09:27; Start 08/23/17 at 09:00 Famotidine (Pepcid Vial) 20 mg 1X ONCE IVP Last administered on 08/23/17 02: 38; Start 08/23/17 at 02:30; Stop 08/23/17 at 02:31; Status DC Sodium Chloride 1,000 ml @ 150 mls/hr Q6H40M IV Last administered on 09:10; Start 08/23/17 at 02:30 Active Scripts Active Percocet 5-325 Mg Tablet (Oxycodone/Acetaminophen) 1 Each Tablet 1-2 Tab PO Q6HRS PRN Vitals/I & O Vital Sign - Last 24 Hours 08/22/17 08/22/17 08/22/17 08/22/17 16:15 16:46 17:49 17:54 Temp 98.9 98.9 Pulse 73 66 90 67 Resp 18 16 B/P (MAP) 119/77 (91) Pulse Ox 99 99 98 97 O2 Delivery Room Air 08/22/17 08/22/17 08/22/17 08/22/17 17:59 18:04 18:09 18:25 Pulse 95 91 69 Resp 12 11 12 Pulse Ox 100 100 100 100 O2 Delivery Ventilator 08/22/17 08/22/17 08/22/17 08/22/17 18:35 19:00 19:00 19:44 Temp 99.0 99.0 Pulse 73 72 Resp 12 16 B/P (MAP) 93/49 (64) Pulse Ox 100 97 100 O2 Delivery Mechanical Ventilator Ventilator Ventilator 08/22/17 08/22/17 08/22/17 08/22/17 20:00 21:00 22:00 22:05 Pulse 68 58 56 Resp 16 16 16 B/P (MAP) 86/49 (61) 90/52 (65) 96/53 (67) Pulse Ox 99 100 100 100 O2 Delivery Ventilator Ventilator Ventilator Ventilator 08/22/17 08/22/17 08/22/17 08/22/17 23:00 23:48 23:59 23:59 Temp 97.9 97.9 Pulse 66 66 Resp 16 16 B/P (MAP) 95/62 (73) 94/55 (68) Pulse Ox 100 100 100 O2 Delivery Ventilator Ventilator Mechanical Ventilator Ventilator 08/23/17 08/23/17 08/23/17 08/23/17 00:46 01:00 02:00 03:00 Pulse 63 59 58 Resp 16 16 16 B/P (MAP) 103/59 (74) 111/69 (83) 106/65 (79) Pulse Ox 100 99 100 100 O2 Delivery Ventilator Ventilator Ventilator Ventilator 08/23/17 08/23/17 08/23/17 08/23/17 03:10 04:00 04:00 04:45 Temp 97.7 97.7 Pulse 50 Resp 16 B/P (MAP) 108/63 (78) Pulse Ox 100 100 100 O2 Delivery Ventilator Ventilator Mechanical Ventilator Ventilator 08/23/17 08/23/17 08/23/17 08/23/17 05:00 06:00 07:00 08:00 Temp 97.7 97.7 Pulse 49 46 49 46 Resp 16 16 16 16 B/P (MAP) 97/49 (65) 109/62 (78) 109/57 (74) 102/43 (62) Pulse Ox 100 100 100 100 O2 Delivery Ventilator Ventilator Ventilator Ventilator 08/23/17 08/23/17 08/23/17 08/23/17 08:00 08:15 09:00 10:00 Pulse 54 53 Resp 16 16 B/P (MAP) 101/58 (72) 96/56 (69) Pulse Ox 100 100 100 O2 Delivery Mechanical Ventilator Ventilator Ventilator Ventilator 08/23/17 08/23/17 08/23/17 08/23/17 10:00 11:00 11:59 12:00 Temp 99.6 99.6 Pulse 54 62 Resp 16 17 B/P (MAP) 102/66 (78) 120/79 (93) Pulse Ox 100 100 100 100 O2 Delivery Ventilator Ventilator Ventilator Ventilator 08/23/17 08/23/17 12:00 13:00 Pulse 64 Resp 16 B/P (MAP) 123/75 (91) Pulse Ox 100 O2 Delivery Mechanical Ventilator Ventilator Intake and Output 08/22/17 08/22/17 08/23/17 15:00 23:00 07:00 Intake Total 405 ml 1468.4 ml Output Total 215 ml 665 ml Balance 190 ml 803.4 ml OSMAN OWENS MD Aug 23, 2017 14:34
--- NOTE | 2017-08-23 14:59 | CONS ---
DATE OF CONSULTATION: 08/23/2017 ATTENDING PHYSICIAN: Dr. Jeanie Mares. REASON FOR CONSULTATION: The patient seen in pulmonary consultation at the request of Dr. Mares for vent management. HISTORY OF PRESENT ILLNESS: The patient is a 26-year-old that is currently in the Intensive Care Unit, intubated and sedated. He presented to the Emergency Room with seizure-like activity, became combative. He was intubated. He is currently on mechanical support, sedated. He has not had any seizure since his intubation and sedation. He has been seen by Neurology. He had a CT of the head, which revealed no acute intracranial abnormalities. Neurology recommended MRI of the brain, EEG. PAST MEDICAL HISTORY: Otherwise remarkable for seizure disorder, possible headaches, bipolar disorder, depression, anxiety, type 1 diabetes. PAST SURGICAL HISTORY: Previous left leg antonino. FAMILY HISTORY: Unavailable. SOCIAL HISTORY: Unknown. REVIEW OF SYSTEMS: Unobtainable secondary to the patient's condition. CURRENT MEDICATIONS: List was reviewed. PHYSICAL EXAMINATION: GENERAL: The patient was intubated and sedated. VITAL SIGNS: Stable. Currently assist control ventilation, tidal volume of 500, rate of 16. HEENT: Eyes, the sclerae were nonicteric. NECK: Jugular venous distention was not elevated. No lymphadenopathy. CHEST: Full expansion. LUNGS: Adequate airway flow, no wheezes. CARDIOVASCULAR: Regular rate and rhythm with S1, S2, no S3. ABDOMEN: Soft, nontender, nondistended. EXTREMITIES: No clubbing, cyanosis or edema. NEUROLOGIC: The patient was sedated. LABORATORY DATA: Chest x-ray was reviewed, no acute cardiopulmonary process. Labs were reviewed. White count was slightly low. Arterial blood gas; pH is 7.38, PaCO2 of 42, ____ of 99. Electrolytes were all normal upon admission. The chemistries were normal. Toxicology screen was negative except for benzodiazepines and cannabinoids. Urine was noted. IMPRESSION: 1. Acute respiratory failure secondary to seizure-like activity. 2. Seizures, possibly related to drug ingestion. 3. Bipolar disorder. 4. Type 1 diabetes. PLAN: We will continue current mechanical support until Neurology has completed their workup. Once the workup has been completed and there is no major pathology, we will proceed with discontinuing sedation and extubation. I do not think we will be able to perform a trial prior to extubation. Due to the fact that the patient was intubated as a result of the neuro status, no need to perform a trial. We will proceed with extubation. I do appreciate the privilege in sharing in the patient's care. TEE CASTRO MD DR: BHAVYA/liliya JOB#: [id number] / [id number]
--- NOTE | 2017-08-23 16:52 | RAD ---
MRI of the brain without contrast 08/23/2017 Clinical History: Altered mental status and seizures. Technique: Unenhanced T1-weighted sagittal and axial, T2-weighted axial and coronal and FLAIR and diffusion-weighted axial images of the brain were obtained. Additionally thin section FLAIR coronal images through the temporal lobes were obtained. Findings: Comparison is made to patient's CT scan of the head dated 08/22/2017. The ventricles and sulci are within normal limits in size and configuration. Patchy and small scattered areas of increased signal intensity are seen within the periventricular and subcortical white matter of both cerebral hemispheres on the FLAIR and T2-weighted images which have a nonspecific MRI appearance but are felt to most likely reflect areas of minimal small vessel ischemic disease. No acute parenchymal abnormality is seen No extra-axial fluid collection is seen. There is no MRI evidence of acute ischemia/infarction. Images through the temporal lobes are within normal limits. Mild mucosal thickening in seen scattered throughout the paranasal sinuses there is a minimal right mastoid effusion. Normal flow voids are seen within the major vascular structures surrounding the brain parenchyma. Impression: No acute parenchymal abnormality is seen. Electronically signed by: Juwan Piedra MD (08/23/2017 4:48 PM) [id number]
[2017-08-23] MEDS: ENOXAPARIN 40 MG/0.4 ML SYRINGE. SQ SCH (22:37)
[2017-08-24] VITALS (15 sets, daily range): BP systolic 102–121; BP diastolic 46–77
[2017-08-24] MEDS: IV NORMAL SALINE 1000ML BAG 1,000 ML IV SCH ×2 (00:42→06:34)
[2017-08-24] MEDS: PROPOFOL 100 ML IV PRN ×3 (00:57→10:15)
[2017-08-24] MEDS ORDERED: ACETAMINOPHEN 650 MG/20.3 ML SOLUTION. PEG PRN (07:30)
[2017-08-24 08:26] LABS: HCO3 ABG 22 mmol/L (21-28); PCO2 ABG 36 mmHg (35-46); PH ABG 7.39 (7.35-7.45); PO2 ABG 132 mmHg (85-108); SAT O2 ABG 98 % (92-99)
[2017-08-24 08:32] LABS: FIO2 ABG 40
[2017-08-24] MEDS ORDERED: ZIPRASIDONE IM 20 MG VIAL. IM PRN (08:45)
[2017-08-24] MEDS: FAMOTIDINE 20 MG/2 ML VIAL IVP SCH (09:50)
[2017-08-24] MEDS: AZITHROMYCIN 250 MG TABLET. PO SCH (09:50)
--- NOTE | 2017-08-24 09:56 | PDOC ---
PROGRESS NOTES Assessment Problems Medical Problems: (1) Syncope and collapse Status: Acute Toxic encephalopathy, possible K2 ingestion Episodes of syncope, appear to be vasovagal related to agitation from his psychiatric disease Psychiatric problems including bipolar disorder, possible psychosis No evidence of organic neurological disease so far Plan He has been too agitated to be extubated EEG would be worthless while on sedation, plus girlfriend is very worried about cutting his hair, but we will nonetheless try to get one done. He has had some fever so I will consider lumbar puncture for completeness. I am starting Geodon to lessen the need for high doses of sedation. Family not available to discuss side effects but I do believe the risks are less than the benefits. Subjective None Objective Vital Signs Date Time Temp Pulse Resp B/P (MAP) Pulse Ox O2 Delivery O2 Flow Rate FiO2 08/24/17 08:18 99 Ventilator 08/24/17 06:00 96 18 103/46 (65) 08/24/17 04:00 102.5 102.5 08/23/17 15:25 15.0 Intake and Output 08/24/17 07:00 Intake Total 4145 ml Output Total 1765 ml Balance 2380 ml Intake Oral 0 ml IV Total 4145 ml Output Urine Total 1665 ml Gastric Drainage Total 100 ml PHYSICAL EXAM Intubated and sedated PERRL. EOMI. CN: no focal findings. Muscle tone: normal. Muscle strength: no movement to pain DTR: 1+ Plantar reflex: flexor Gait: not examined in bed. Sensory exam: not cooperative. Cerebellar: not cooperative Review of Relevant I have reviewed the following items godwin (where applicable) has been applied. Labs Laboratory Tests Test 08/22/17 16:20 08/22/17 16:48 08/22/17 18:15 08/22/17 18:58 White Blood Count 3.9 x10^3/uL (4.0-11.0) Red Blood Count 3.56 x10^6/uL (4.30-5.70) Hemoglobin 12.9 g/dL (13.0-17.5) Hematocrit 38.1 % (39.0-53.0) Mean Corpuscular Volume 107 fL (79-100) Mean Corpuscular Hemoglobin 36 pg (25-35) Mean Corpuscular Hemoglobin Concent 34 g/dL (31-37) Red Cell Distribution Width 12.6 % (11.5-14.5) Platelet Count 327 x10^3/uL (140-400) Neutrophils (%) (Auto) 49 % (31-73) Lymphocytes (%) (Auto) 43 % (24-48) Monocytes (%) (Auto) 5 % (0-9) Eosinophils (%) (Auto) 3 % (0-3) Basophils (%) (Auto) 1 % (0-3) Neutrophils # (Auto) 1.9 x10^3uL (1.8-7.7) Lymphocytes # (Auto) 1.7 x10^3/uL (1.0-4.8) Monocytes # (Auto) 0.2 x10^3/uL (0.0-1.1) Eosinophils # (Auto) 0.1 x10^3/uL (0.0-0.7) Basophils # (Auto) 0.0 x10^3/uL (0.0-0.2) Sodium Level 140 mmol/L (136-145) Potassium Level 4.4 mmol/L (3.5-5.1) Chloride Level 105 mmol/L (98-107) Carbon Dioxide Level 27 mmol/L (21-32) Anion Gap 8 (6-14) Blood Urea Nitrogen 9 mg/dL (8-26) Creatinine 0.9 mg/dL (0.7-1.3) Estimated GFR (Cockcroft-Gault) 122.5 BUN/Creatinine Ratio 10 (6-20) Glucose Level 93 mg/dL (70-99) Lactic Acid Level 1.2 mmol/L (0.4-2.0) Calcium Level 9.2 mg/dL (8.5-10.1) Magnesium Level 2.0 mg/dL (1.8-2.4) Total Bilirubin 0.4 mg/dL (0.2-1.0) Direct Bilirubin 0.1 mg/dL (0.0-0.2) Aspartate Amino Transf (AST/SGOT) 37 U/L (15-37) Alanine Aminotransferase (ALT/SGPT) 21 U/L (16-63) Alkaline Phosphatase 81 U/L (46-116) Ammonia 38 mcmol/L (11-34) Troponin I Quantitative < 0.017 ng/mL (0.000-0.055) Total Protein 7.3 g/dL (6.4-8.2) Albumin 4.0 g/dL (3.4-5.0) Albumin/Globulin Ratio 1.2 (1.0-1.7) Glucose (Fingerstick) 98 mg/dL (70-99) O2 Saturation 99 % (92-99) Arterial Blood pH 7.32 (7.35-7.45) Arterial Blood pCO2 at Patient Temp 51 mmHg (35-46) Arterial Blood pO2 at Patient Temp 200 mmHg (85-108) Arterial Blood HCO3 25 mmol/L (21-28) Arterial Blood Base Excess -1 mmol/L (-3-3) FiO2 50 Urine Collection Type U cath Urine Color Yellow Urine Clarity Hazy Urine pH 5.5 Urine Specific [place] 1.025 Urine Protein Negative mg/dL (NEG-TRACE) Urine Glucose (UA) Negative mg/dL (NEG) Urine Ketones (Stick) Negative mg/dL (NEG) Urine Blood Negative (NEG) Urine Nitrite Negative (NEG) Urine Bilirubin Negative (NEG) Urine Urobilinogen Dipstick 0.2 mg/dL (0.2 mg/dL) Urine Leukocyte Esterase Negative (NEG) Urine RBC Occ /HPF (0-2) Urine WBC 0 /HPF (0-4) Urine Squamous Epithelial Cells Few /LPF Urine Transitional Epithelial Cells Occ /LPF Urine Bacteria 0 /HPF (0-FEW) Urine Mucus Marked /LPF Urine Opiates Screen Neg (NEG) Urine Methadone Screen Neg (NEG) Urine Barbiturates Neg (NEG) Urine Phencyclidine Screen Neg (NEG) Urine Amphetamine/Methamphetamine Neg (NEG) Urine Benzodiazepines Screen Pos (NEG) Urine Cocaine Screen Neg (NEG) Urine Cannabinoids Screen Pos (NEG) Urine Ethyl Alcohol Neg (NEG) Test 08/22/17 19:25 08/22/17 21:12 08/23/17 05:23 08/23/17 08:15 Nasal Screen MRSA (PCR) Negative (Negative) Glucose (Fingerstick) 77 mg/dL (70-99) White Blood Count 3.0 x10^3/uL (4.0-11.0) Red Blood Count 3.20 x10^6/uL (4.30-5.70) Hemoglobin 11.7 g/dL (13.0-17.5) Hematocrit 34.8 % (39.0-53.0) Mean Corpuscular Volume 109 fL (79-100) Mean Corpuscular Hemoglobin 37 pg (25-35) Mean Corpuscular Hemoglobin Concent 34 g/dL (31-37) Red Cell Distribution Width 12.7 % (11.5-14.5) Platelet Count 285 x10^3/uL (140-400) Neutrophils (%) (Auto) 29 % (31-73) Lymphocytes (%) (Auto) 60 % (24-48) Monocytes (%) (Auto) 7 % (0-9) Eosinophils (%) (Auto) 4 % (0-3) Basophils (%) (Auto) 1 % (0-3) Neutrophils # (Auto) 0.8 x10^3uL (1.8-7.7) Lymphocytes # (Auto) 1.8 x10^3/uL (1.0-4.8) Monocytes # (Auto) 0.2 x10^3/uL (0.0-1.1) Eosinophils # (Auto) 0.1 x10^3/uL (0.0-0.7) Basophils # (Auto) 0.0 x10^3/uL (0.0-0.2) Segmented Neutrophils % 33 % (35-66) Lymphocytes % 61 % (24-48) Monocytes % 4 % (0-10) Eosinophils % 2 % (0-5) Platelet Estimate Adequate (ADEQUATE) Macrocytosis Present Sodium Level 142 mmol/L (136-145) Potassium Level 3.5 mmol/L (3.5-5.1) Chloride Level 108 mmol/L (98-107) Carbon Dioxide Level 25 mmol/L (21-32) Anion Gap 9 (6-14) Blood Urea Nitrogen 8 mg/dL (8-26) Creatinine 0.8 mg/dL (0.7-1.3) Estimated GFR (Cockcroft-Gault) 140.3 BUN/Creatinine Ratio 10 (6-20) Glucose Level 88 mg/dL (70-99) Calcium Level 8.4 mg/dL (8.5-10.1) Total Bilirubin 0.7 mg/dL (0.2-1.0) Aspartate Amino Transf (AST/SGOT) 42 U/L (15-37) Alanine Aminotransferase (ALT/SGPT) 21 U/L (16-63) Alkaline Phosphatase 57 U/L (46-116) Total Protein 6.4 g/dL (6.4-8.2) Albumin 3.2 g/dL (3.4-5.0) Albumin/Globulin Ratio 1.0 (1.0-1.7) Vitamin B12 Level 461 pg/mL (247-911) Serum Folate 12.10 ng/ml (3.2-20.0) O2 Saturation 97 % (92-99) Arterial Blood pH 7.38 (7.35-7.45) Arterial Blood pCO2 at Patient Temp 42 mmHg (35-46) Arterial Blood pO2 at Patient Temp 99 mmHg (85-108) Arterial Blood HCO3 25 mmol/L (21-28) Arterial Blood Base Excess -1 mmol/L (-3-3) FiO2 40 Test 08/24/17 00:44 08/24/17 07:30 Glucose (Fingerstick) 74 mg/dL (70-99) O2 Saturation 98 % (92-99) Arterial Blood pH 7.39 (7.35-7.45) Arterial Blood pCO2 at Patient Temp 36 mmHg (35-46) Arterial Blood pO2 at Patient Temp 132 mmHg (85-108) Arterial Blood HCO3 22 mmol/L (21-28) Arterial Blood Base Excess -3 mmol/L (-3-3) FiO2 40 Laboratory Tests Test 08/24/17 00:44 08/24/17 07:30 Glucose (Fingerstick) 74 mg/dL (70-99) O2 Saturation 98 % (92-99) Arterial Blood pH 7.39 (7.35-7.45) Arterial Blood pCO2 at Patient Temp 36 mmHg (35-46) Arterial Blood pO2 at Patient Temp 132 mmHg (85-108) Arterial Blood HCO3 22 mmol/L (21-28) Arterial Blood Base Excess -3 mmol/L (-3-3) FiO2 40 Medications Current Medications Lorazepam (Ativan) 2 mg STK-MED ONCE .ROUTE ; Start 08/22/17 at 16:20; Stop 08/22/17 at 16:21; Status DC Lorazepam (Ativan) 2 mg 1X ONCE IV Last administered on 08/22/17t 16:20; Start 08/22/17 at 16:30; Stop 08/22/17 at 16:31; Status DC Haloperidol Lactate (Haldol) 5 mg STK-MED ONCE .ROUTE ; Start 08/22/17 at 17:39 ; Stop 08/22/17 at 17:40; Status DC Succinylcholine Chloride (Anectine) 200 mg 1X ONCE IV Last administered on 17:58; Start 08/22/17 at 18:00; Stop 08/22/17 at 18:01; Status DC Etomidate (Amidate) 20 mg 1X ONCE IV Last administered on 08/22/17 17:57; Start 08/22/17 at 18:00; Stop 08/22/17 at 18:01; Status DC Haloperidol Lactate (Haldol) 10 mg 1X ONCE IM Last administered on 08/22/17 17:42; Start 08/22/17 at 18:00; Stop 08/22/17 at 18:01; Status DC Lorazepam (Ativan) 2 mg 1X ONCE IM Last administered on 08/22/17 17:42; Start 08/22/17 at 18:00; Stop 08/22/17 at 18:01; Status DC Propofol (Diprivan) 200 mg 1X ONCE IV Last administered on 08/22/17 18:02; Start 08/22/17 at 18:00; Stop 08/22/17 at 18:01; Status DC Propofol 20 ml @ 0 mls/hr 1X ONCE IV Last administered on 08/22/17 18:02; Start 08/22/17 at 18:00; Stop 08/22/17 at 18:01; Status DC Propofol 50 ml @ As Directed STK-MED ONCE IV ; Start 08/22/17 at 17:52; Stop at 17:53; Status DC Sodium Chloride 1,000 ml @ 125 mls/hr Q8H IV Last administered on 08/22/17 18 :06; Start 08/22/17 at 18:06; Stop 08/23/17 at 02:18; Status DC Propofol 50 ml @ As Directed STK-MED ONCE IV ; Start 08/22/17 at 18:17; Stop at 18:18; Status DC Vecuronium [place] (Norcuron Bolus) 10 mg 1X ONCE IV Last administered on 08/22 18:06; Start 08/22/17 at 18:30; Stop 08/22/17 at 18:31; Status DC Levetiracetam 500 mg/Dextrose 105 ml @ 420 mls/hr Q12HR IV ; Start 08/22/17 at 21:00; Stop 08/22/17 at 21:00; Status DC Levetiracetam 500 mg/Sodium Chloride 105 ml @ 420 mls/hr Q12HR IV Last administered on 08/24/17 09:50; Start 08/22/17 at 21:00 Lorazepam (Ativan) 1 mg PRN Q1HR PRN IV COMM; Start 08/22/17 at 20:15 Lorazepam (Ativan) 2 mg PRN Q1HR PRN IV COMM Last administered on 08/23/17 16: 00; Start 08/22/17 at 20:15 Propofol 100 ml @ 0 mls/hr CONT PRN IV PER PROTOCOL Last administered on 06:34; Start 08/22/17 at 20:15 Azithromycin 500 mg/Sodium Chloride 250 ml @ 250 mls/hr 1X ONCE IV Last administered on 08/22/17 21:59; Start 08/22/17 at 21:30; Stop 08/22/17 at 22:29 ; Status DC Azithromycin (Zithromax) 250 mg DAILY PO Last administered on 08/24/17 09:50; Start 08/23/17 at 09:00 Enoxaparin Sodium (Lovenox Per Pharmacy Prophylaxis Dosing) 1 each PRN DAILY PRN MC SEE COMMENTS; Start 08/22/17 at 23:00; Stop 08/23/17 at 08:19; Status DC Enoxaparin Sodium (Lovenox 40mg Syringe) 40 mg Q24H SQ Last administered on 22:37; Start 08/22/17 at 23:00 Pneumococcal Polyvalent Vaccine (Do NOT chart on this placeholder) 1 each 1X ONCE MC ; Start 08/23/17 at 00:15; Stop 08/23/17 at 00:16; Status UNV Pneumococcal Polyvalent Vaccine (Pneumovax 23) 0.5 ml ONCE ONCE VAX IM ; Start 08/23/17 at 09:00; Stop 08/23/17 at 09:01; Status DC Famotidine (Pepcid Vial) 20 mg BID IVP Last administered on 08/24/17 09:50; Start 08/23/17 at 09:00 Famotidine (Pepcid Vial) 20 mg 1X ONCE IVP Last administered on 08/23/17 02: 38; Start 08/23/17 at 02:30; Stop 08/23/17 at 02:31; Status DC Sodium Chloride 1,000 ml @ 150 mls/hr Q6H40M IV Last administered on 06:34; Start 08/23/17 at 02:30 Acetaminophen (Tylenol) 650 mg PRN Q6HRS PRN PEG MILD PAIN / TEMP Last administered on 08/24/17 09:50; Start 08/24/17 at 07:30 Ziprasidone (Geodon Im) 20 mg PRN Q12HRS PRN IM agitation; Start 08/24/17 at 08 :45 Active Scripts Active Percocet 5-325 Mg Tablet (Oxycodone/Acetaminophen) 1 Each Tablet 1-2 Tab PO Q6HRS PRN Vitals/I & O Vital Sign - Last 24 Hours 08/23/17 08/23/17 08/23/17 08/23/17 10:00 10:00 11:00 11:59 Pulse 53 54 Resp 16 16 B/P (MAP) 96/56 (69) 102/66 (78) Pulse Ox 100 100 100 100 O2 Delivery Ventilator Ventilator Ventilator Ventilator 08/23/17 08/23/17 08/23/17 08/23/17 12:00 12:00 13:00 13:58 Temp 99.6 99.6 Pulse 62 64 Resp 17 16 B/P (MAP) 120/79 (93) 123/75 (91) Pulse Ox 100 100 100 O2 Delivery Ventilator Mechanical Ventilator Ventilator Ventilator 08/23/17 08/23/17 08/23/17 08/23/17 14:00 15:00 15:25 16:00 Pulse 76 82 Resp 16 16 B/P (MAP) 125/68 (87) 118/58 (78) Pulse Ox 100 99 O2 Delivery Ventilator Ventilator Bag Valve Mask Mechanical Ventilator O2 Flow Rate 15.0 08/23/17 08/23/17 08/23/17 08/23/17 16:00 16:20 17:00 17:08 Temp 99.8 99.8 Pulse 80 76 Resp 18 16 B/P (MAP) 135/71 (92) 133/62 (85) Pulse Ox 99 100 100 O2 Delivery Ventilator Ventilator Ventilator Ventilator 08/23/17 08/23/17 08/23/17 08/23/17 18:00 19:00 19:46 20:00 Pulse 70 70 Resp 16 16 B/P (MAP) 115/60 (78) 117/60 (79) Pulse Ox 100 100 100 O2 Delivery Ventilator Ventilator Ventilator Mechanical Ventilator 08/23/17 08/23/17 08/23/17 08/23/17 20:00 21:00 22:00 22:58 Temp 99.7 99.7 Pulse 70 80 78 Resp 18 20 18 B/P (MAP) 134/77 (96) 106/54 (71) 120/61 (80) Pulse Ox 100 100 100 100 O2 Delivery Ventilator Ventilator Ventilator Ventilator 08/23/17 08/24/17 08/24/17 08/24/17 23:00 00:00 00:00 00:52 Temp 101.0 101.0 Pulse 87 86 Resp 18 22 B/P (MAP) 129/68 (88) 107/56 (73) Pulse Ox 100 100 100 O2 Delivery Ventilator Mechanical Ventilator Ventilator Ventilator 08/24/17 08/24/17 08/24/17 08/24/17 01:00 02:00 03:00 03:15 Pulse 102 104 106 Resp 20 17 20 B/P (MAP) 121/70 (87) 112/60 (77) 116/66 (83) Pulse Ox 98 96 100 100 O2 Delivery Ventilator Ventilator Ventilator Ventilator 08/24/17 08/24/17 08/24/17 08/24/17 04:00 04:00 05:00 05:38 Temp 102.5 102.5 Pulse 102 95 Resp 18 19 B/P (MAP) 119/60 (79) 109/47 (67) Pulse Ox 100 99 100 O2 Delivery Ventilator Mechanical Ventilator Ventilator Ventilator 08/24/17 08/24/17 06:00 08:18 Pulse 96 Resp 18 B/P (MAP) 103/46 (65) Pulse Ox 99 99 O2 Delivery Ventilator Ventilator Intake and Output 08/23/17 08/23/17 08/24/17 15:00 23:00 07:00 Intake Total 420 ml 1782 ml 1943 ml Output Total 610 ml 550 ml 605 ml Balance -190 ml 1232 ml 1338 ml Images MRI brain: The ventricles and sulci are within normal limits in size and configuration. Patchy and small scattered areas of increased signal intensity are seen within the periventricular and subcortical white matter of both cerebral hemispheres on the FLAIR and T2-weighted images which have a nonspecific MRI appearance but are felt to most likely reflect areas of minimal small vessel ischemic disease. No acute parenchymal abnormality is seen No extra-axial fluid collection is seen. There is no MRI evidence of acute ischemia/infarction. Images through the temporal lobes are within normal limits. Mild mucosal thickening in seen scattered throughout the paranasal sinuses there is a minimal right mastoid effusion. Normal flow voids are seen within the major vascular structures surrounding the brain parenchyma. Impression: No acute parenchymal abnormality is seen. JOHN YADAV MD Aug 24, 2017 09:56
--- NOTE | 2017-08-24 12:34 | PDOC ---
PROGRESS NOTES Chief Complaint Chief Complaint acute encephalopathy, NOS, combative and agitated, possible psychosis, Seizure disorder, multiple small of activity seen in the ER, poss absence, Substance abuse, THC, suspect other reported Diabetes, NOS, blood sugars stable sinusitis on CT scan with report of facial pain, Azithromycin macrocytosis without anemia, check b12 and folate, lymphocytosis plan ICU neurology following EEG MRI HEAD ok blood cult, iv antibiotics ID consult History of Present Illness History of Present Illness VTE Prophylaxis Ordered VTE Prophylaxis Devices: No VTE Pharmacological Prophylaxi: Yes Assessment/Plan Assessment/Plan assessment acute encephalopathy, related to drug ingestion NOS, combative and agitated , possible psychosis, Seizure disorder, multiple small of activity seen in the ER, poss absence, Substance abuse, THC, suspect other reported Diabetes, NOS, blood sugars stable sinusitis on CT scan with report of facial pain, Azithromycin macrocytosis without anemia, check b12 and folate, fever, probable aspiration plan ICU VENT SUPPORT neurology consult EEG MRI HEAD Reviewed ID CONSULT IV ZOSYN, LEVAQUIN, STOP ZITHROMAX BLOOD CULT X 2 PCXR 35 min cc time Problems: Comment Vitals Vitals Vital Signs Date Time Temp Pulse Resp B/P (MAP) Pulse Ox O2 Delivery O2 Flow Rate FiO2 08/24/17 12:13 99 Ventilator 08/24/17 06:00 96 18 103/46 (65) 08/24/17 04:00 102.5 102.5 08/23/17 15:25 15.0 Physical Exam Physical Exam Physical Exam General: no distress, Other on vent Heart: Regular rate Abdomen: Normal bowel sounds, Soft Extremities: No clubbing, No cyanosis, No edema, Normal pulses Skin: No rashes, Other cxr pending fever noted General: moderate distress, Other Heart: Regular rate Abdomen: Normal bowel sounds, Soft Extremities: No clubbing, No cyanosis, No edema, Normal pulses Skin: No rashes, Other Labs LABS Portable chest, 08/23/2017: History: Respiratory failure, intubation Comparison is made to yesterday evenings study. The tip of the ET tube now lies 7 cm above the david. An NG tube extends into the stomach. The heart size is normal. No pulmonary infiltrates are seen. There is no evidence of pleural fluid or pneumothorax. IMPRESSION: 1. The ET tube and NG tube are in satisfactory positions. 2. No acute cardiopulmonary abnormality is detected. MRI of the brain without contrast 08/23/2017 Clinical History: Altered mental status and seizures. Technique: Unenhanced T1-weighted sagittal and axial, T2-weighted axial and coronal and FLAIR and diffusion-weighted axial images of the brain were obtained. Additionally thin section FLAIR coronal images through the temporal lobes were obtained. Findings: Comparison is made to patient's CT scan of the head dated 08/22/2017. The ventricles and sulci are within normal limits in size and configuration. Patchy and small scattered areas of increased signal intensity are seen within the periventricular and subcortical white matter of both cerebral hemispheres on the FLAIR and T2-weighted images which have a nonspecific MRI appearance but are felt to most likely reflect areas of minimal small vessel ischemic disease. No acute parenchymal abnormality is seen No extra-axial fluid collection is seen. There is no MRI evidence of acute ischemia/infarction. Images through the temporal lobes are within normal limits. Mild mucosal thickening in seen scattered throughout the paranasal sinuses there is a minimal right mastoid effusion. Normal flow voids are seen within the major vascular structures surrounding the brain parenchyma. Impression: No acute parenchymal abnormality is seen. Laboratory Tests Test 08/24/17 00:44 08/24/17 07:30 Glucose (Fingerstick) 74 mg/dL (70-99) O2 Saturation 98 % (92-99) Arterial Blood pH 7.39 (7.35-7.45) Arterial Blood pCO2 at Patient Temp 36 mmHg (35-46) Arterial Blood pO2 at Patient Temp 132 mmHg (85-108) Arterial Blood HCO3 22 mmol/L (21-28) Arterial Blood Base Excess -3 mmol/L (-3-3) FiO2 40 Assessment and Plan Assessmemt and Plan Problems Medical Problems: (1) Syncope and collapse Status: Acute Problems: Comment Review of Relevant I have reviewed the following items godwin (where applicable) has been applied. Labs Laboratory Tests Test 08/22/17 16:20 08/22/17 16:48 08/22/17 18:15 08/22/17 18:58 White Blood Count 3.9 x10^3/uL (4.0-11.0) Red Blood Count 3.56 x10^6/uL (4.30-5.70) Hemoglobin 12.9 g/dL (13.0-17.5) Hematocrit 38.1 % (39.0-53.0) Mean Corpuscular Volume 107 fL (79-100) Mean Corpuscular Hemoglobin 36 pg (25-35) Mean Corpuscular Hemoglobin Concent 34 g/dL (31-37) Red Cell Distribution Width 12.6 % (11.5-14.5) Platelet Count 327 x10^3/uL (140-400) Neutrophils (%) (Auto) 49 % (31-73) Lymphocytes (%) (Auto) 43 % (24-48) Monocytes (%) (Auto) 5 % (0-9) Eosinophils (%) (Auto) 3 % (0-3) Basophils (%) (Auto) 1 % (0-3) Neutrophils # (Auto) 1.9 x10^3uL (1.8-7.7) Lymphocytes # (Auto) 1.7 x10^3/uL (1.0-4.8) Monocytes # (Auto) 0.2 x10^3/uL (0.0-1.1) Eosinophils # (Auto) 0.1 x10^3/uL (0.0-0.7) Basophils # (Auto) 0.0 x10^3/uL (0.0-0.2) Sodium Level 140 mmol/L (136-145) Potassium Level 4.4 mmol/L (3.5-5.1) Chloride Level 105 mmol/L (98-107) Carbon Dioxide Level 27 mmol/L (21-32) Anion Gap 8 (6-14) Blood Urea Nitrogen 9 mg/dL (8-26) Creatinine 0.9 mg/dL (0.7-1.3) Estimated GFR (Cockcroft-Gault) 122.5 BUN/Creatinine Ratio 10 (6-20) Glucose Level 93 mg/dL (70-99) Lactic Acid Level 1.2 mmol/L (0.4-2.0) Calcium Level 9.2 mg/dL (8.5-10.1) Magnesium Level 2.0 mg/dL (1.8-2.4) Total Bilirubin 0.4 mg/dL (0.2-1.0) Direct Bilirubin 0.1 mg/dL (0.0-0.2) Aspartate Amino Transf (AST/SGOT) 37 U/L (15-37) Alanine Aminotransferase (ALT/SGPT) 21 U/L (16-63) Alkaline Phosphatase 81 U/L (46-116) Ammonia 38 mcmol/L (11-34) Troponin I Quantitative < 0.017 ng/mL (0.000-0.055) Total Protein 7.3 g/dL (6.4-8.2) Albumin 4.0 g/dL (3.4-5.0) Albumin/Globulin Ratio 1.2 (1.0-1.7) Glucose (Fingerstick) 98 mg/dL (70-99) O2 Saturation 99 % (92-99) Arterial Blood pH 7.32 (7.35-7.45) Arterial Blood pCO2 at Patient Temp 51 mmHg (35-46) Arterial Blood pO2 at Patient Temp 200 mmHg (85-108) Arterial Blood HCO3 25 mmol/L (21-28) Arterial Blood Base Excess -1 mmol/L (-3-3) FiO2 50 Urine Collection Type U cath Urine Color Yellow Urine Clarity Hazy Urine pH 5.5 Urine Specific [place] 1.025 Urine Protein Negative mg/dL (NEG-TRACE) Urine Glucose (UA) Negative mg/dL (NEG) Urine Ketones (Stick) Negative mg/dL (NEG) Urine Blood Negative (NEG) Urine Nitrite Negative (NEG) Urine Bilirubin Negative (NEG) Urine Urobilinogen Dipstick 0.2 mg/dL (0.2 mg/dL) Urine Leukocyte Esterase Negative (NEG) Urine RBC Occ /HPF (0-2) Urine WBC 0 /HPF (0-4) Urine Squamous Epithelial Cells Few /LPF Urine Transitional Epithelial Cells Occ /LPF Urine Bacteria 0 /HPF (0-FEW) Urine Mucus Marked /LPF Urine Opiates Screen Neg (NEG) Urine Methadone Screen Neg (NEG) Urine Barbiturates Neg (NEG) Urine Phencyclidine Screen Neg (NEG) Urine Amphetamine/Methamphetamine Neg (NEG) Urine Benzodiazepines Screen Pos (NEG) Urine Cocaine Screen Neg (NEG) Urine Cannabinoids Screen Pos (NEG) Urine Ethyl Alcohol Neg (NEG) Test 08/22/17 19:25 08/22/17 21:12 08/23/17 05:23 08/23/17 08:15 Nasal Screen MRSA (PCR) Negative (Negative) Glucose (Fingerstick) 77 mg/dL (70-99) White Blood Count 3.0 x10^3/uL (4.0-11.0) Red Blood Count 3.20 x10^6/uL (4.30-5.70) Hemoglobin 11.7 g/dL (13.0-17.5) Hematocrit 34.8 % (39.0-53.0) Mean Corpuscular Volume 109 fL (79-100) Mean Corpuscular Hemoglobin 37 pg (25-35) Mean Corpuscular Hemoglobin Concent 34 g/dL (31-37) Red Cell Distribution Width 12.7 % (11.5-14.5) Platelet Count 285 x10^3/uL (140-400) Neutrophils (%) (Auto) 29 % (31-73) Lymphocytes (%) (Auto) 60 % (24-48) Monocytes (%) (Auto) 7 % (0-9) Eosinophils (%) (Auto) 4 % (0-3) Basophils (%) (Auto) 1 % (0-3) Neutrophils # (Auto) 0.8 x10^3uL (1.8-7.7) Lymphocytes # (Auto) 1.8 x10^3/uL (1.0-4.8) Monocytes # (Auto) 0.2 x10^3/uL (0.0-1.1) Eosinophils # (Auto) 0.1 x10^3/uL (0.0-0.7) Basophils # (Auto) 0.0 x10^3/uL (0.0-0.2) Segmented Neutrophils % 33 % (35-66) Lymphocytes % 61 % (24-48) Monocytes % 4 % (0-10) Eosinophils % 2 % (0-5) Platelet Estimate Adequate (ADEQUATE) Macrocytosis Present Sodium Level 142 mmol/L (136-145) Potassium Level 3.5 mmol/L (3.5-5.1) Chloride Level 108 mmol/L (98-107) Carbon Dioxide Level 25 mmol/L (21-32) Anion Gap 9 (6-14) Blood Urea Nitrogen 8 mg/dL (8-26) Creatinine 0.8 mg/dL (0.7-1.3) Estimated GFR (Cockcroft-Gault) 140.3 BUN/Creatinine Ratio 10 (6-20) Glucose Level 88 mg/dL (70-99) Calcium Level 8.4 mg/dL (8.5-10.1) Total Bilirubin 0.7 mg/dL (0.2-1.0) Aspartate Amino Transf (AST/SGOT) 42 U/L (15-37) Alanine Aminotransferase (ALT/SGPT) 21 U/L (16-63) Alkaline Phosphatase 57 U/L (46-116) Total Protein 6.4 g/dL (6.4-8.2) Albumin 3.2 g/dL (3.4-5.0) Albumin/Globulin Ratio 1.0 (1.0-1.7) Vitamin B12 Level 461 pg/mL (247-911) Serum Folate 12.10 ng/ml (3.2-20.0) O2 Saturation 97 % (92-99) Arterial Blood pH 7.38 (7.35-7.45) Arterial Blood pCO2 at Patient Temp 42 mmHg (35-46) Arterial Blood pO2 at Patient Temp 99 mmHg (85-108) Arterial Blood HCO3 25 mmol/L (21-28) Arterial Blood Base Excess -1 mmol/L (-3-3) FiO2 40 Test 08/24/17 00:44 08/24/17 07:30 Glucose (Fingerstick) 74 mg/dL (70-99) O2 Saturation 98 % (92-99) Arterial Blood pH 7.39 (7.35-7.45) Arterial Blood pCO2 at Patient Temp 36 mmHg (35-46) Arterial Blood pO2 at Patient Temp 132 mmHg (85-108) Arterial Blood HCO3 22 mmol/L (21-28) Arterial Blood Base Excess -3 mmol/L (-3-3) FiO2 40 Laboratory Tests Test 08/24/17 00:44 08/24/17 07:30 Glucose (Fingerstick) 74 mg/dL (70-99) O2 Saturation 98 % (92-99) Arterial Blood pH 7.39 (7.35-7.45) Arterial Blood pCO2 at Patient Temp 36 mmHg (35-46) Arterial Blood pO2 at Patient Temp 132 mmHg (85-108) Arterial Blood HCO3 22 mmol/L (21-28) Arterial Blood Base Excess -3 mmol/L (-3-3) FiO2 40 Medications Current Medications Lorazepam (Ativan) 2 mg STK-MED ONCE .ROUTE ; Start 08/22/17 at 16:20; Stop 08/22/17 at 16:21; Status DC Lorazepam (Ativan) 2 mg 1X ONCE IV Last administered on 08/22/17t 16:20; Start 08/22/17 at 16:30; Stop 08/22/17 at 16:31; Status DC Haloperidol Lactate (Haldol) 5 mg STK-MED ONCE .ROUTE ; Start 08/22/17 at 17:39 ; Stop 08/22/17 at 17:40; Status DC Succinylcholine Chloride (Anectine) 200 mg 1X ONCE IV Last administered on 17:58; Start 08/22/17 at 18:00; Stop 08/22/17 at 18:01; Status DC Etomidate (Amidate) 20 mg 1X ONCE IV Last administered on 08/22/17 17:57; Start 08/22/17 at 18:00; Stop 08/22/17 at 18:01; Status DC Haloperidol Lactate (Haldol) 10 mg 1X ONCE IM Last administered on 08/22/17 17:42; Start 08/22/17 at 18:00; Stop 08/22/17 at 18:01; Status DC Lorazepam (Ativan) 2 mg 1X ONCE IM Last administered on 08/22/17 17:42; Start 08/22/17 at 18:00; Stop 08/22/17 at 18:01; Status DC Propofol (Diprivan) 200 mg 1X ONCE IV Last administered on 08/22/17 18:02; Start 08/22/17 at 18:00; Stop 08/22/17 at 18:01; Status DC Propofol 20 ml @ 0 mls/hr 1X ONCE IV Last administered on 08/22/17 18:02; Start 08/22/17 at 18:00; Stop 08/22/17 at 18:01; Status DC Propofol 50 ml @ As Directed STK-MED ONCE IV ; Start 08/22/17 at 17:52; Stop at 17:53; Status DC Sodium Chloride 1,000 ml @ 125 mls/hr Q8H IV Last administered on 08/22/17 18 :06; Start 08/22/17 at 18:06; Stop 08/23/17 at 02:18; Status DC Propofol 50 ml @ As Directed STK-MED ONCE IV ; Start 08/22/17 at 18:17; Stop at 18:18; Status DC Vecuronium [place] (Norcuron Bolus) 10 mg 1X ONCE IV Last administered on 08/22 18:06; Start 08/22/17 at 18:30; Stop 08/22/17 at 18:31; Status DC Levetiracetam 500 mg/Dextrose 105 ml @ 420 mls/hr Q12HR IV ; Start 08/22/17 at 21:00; Stop 08/22/17 at 21:00; Status DC Levetiracetam 500 mg/Sodium Chloride 105 ml @ 420 mls/hr Q12HR IV Last administered on 08/24/17 09:50; Start 08/22/17 at 21:00 Lorazepam (Ativan) 1 mg PRN Q1HR PRN IV COMM; Start 08/22/17 at 20:15 Lorazepam (Ativan) 2 mg PRN Q1HR PRN IV COMM Last administered on 08/23/17 16: 00; Start 08/22/17 at 20:15 Propofol 100 ml @ 0 mls/hr CONT PRN IV PER PROTOCOL Last administered on 06:34; Start 08/22/17 at 20:15 Azithromycin 500 mg/Sodium Chloride 250 ml @ 250 mls/hr 1X ONCE IV Last administered on 08/22/17 21:59; Start 08/22/17 at 21:30; Stop 08/22/17 at 22:29 ; Status DC Azithromycin (Zithromax) 250 mg DAILY PO Last administered on 08/24/17 09:50; Start 08/23/17 at 09:00 Enoxaparin Sodium (Lovenox Per Pharmacy Prophylaxis Dosing) 1 each PRN DAILY PRN MC SEE COMMENTS; Start 08/22/17 at 23:00; Stop 08/23/17 at 08:19; Status DC Enoxaparin Sodium (Lovenox 40mg Syringe) 40 mg Q24H SQ Last administered on 22:37; Start 08/22/17 at 23:00 Pneumococcal Polyvalent Vaccine (Do NOT chart on this placeholder) 1 each 1X ONCE MC ; Start 08/23/17 at 00:15; Stop 08/23/17 at 00:16; Status UNV Pneumococcal Polyvalent Vaccine (Pneumovax 23) 0.5 ml ONCE ONCE VAX IM ; Start 08/23/17 at 09:00; Stop 08/23/17 at 09:01; Status DC Famotidine (Pepcid Vial) 20 mg BID IVP Last administered on 08/24/17 09:50; Start 08/23/17 at 09:00 Famotidine (Pepcid Vial) 20 mg 1X ONCE IVP Last administered on 08/23/17 02: 38; Start 08/23/17 at 02:30; Stop 08/23/17 at 02:31; Status DC Sodium Chloride 1,000 ml @ 150 mls/hr Q6H40M IV Last administered on 06:34; Start 08/23/17 at 02:30 Acetaminophen (Tylenol) 650 mg PRN Q6HRS PRN PEG MILD PAIN / TEMP Last administered on 08/24/17 09:50; Start 08/24/17 at 07:30 Ziprasidone (Geodon Im) 20 mg PRN Q12HRS PRN IM agitation; Start 08/24/17 at 08 :45 Active Scripts Active Percocet 5-325 Mg Tablet (Oxycodone/Acetaminophen) 1 Each Tablet 1-2 Tab PO Q6HRS PRN Vitals/I & O Vital Sign - Last 24 Hours 08/23/17 08/23/17 08/23/17 08/23/17 13:00 13:58 14:00 15:00 Pulse 64 76 82 Resp 16 16 16 B/P (MAP) 123/75 (91) 125/68 (87) 118/58 (78) Pulse Ox 100 100 100 99 O2 Delivery Ventilator Ventilator Ventilator Ventilator 08/23/17 08/23/17 08/23/17 08/23/17 15:25 16:00 16:00 16:20 Temp 99.8 99.8 Pulse 80 Resp 18 B/P (MAP) 135/71 (92) Pulse Ox 99 O2 Delivery Bag Valve Mask Mechanical Ventilator Ventilator Ventilator O2 Flow Rate 15.0 08/23/17 08/23/17 08/23/17 08/23/17 17:00 17:08 18:00 19:00 Pulse 76 70 70 Resp 16 16 16 B/P (MAP) 133/62 (85) 115/60 (78) 117/60 (79) Pulse Ox 100 100 100 100 O2 Delivery Ventilator Ventilator Ventilator Ventilator 08/23/17 08/23/17 08/23/17 08/23/17 19:46 20:00 20:00 21:00 Temp 99.7 99.7 Pulse 70 80 Resp 18 20 B/P (MAP) 134/77 (96) 106/54 (71) Pulse Ox 100 100 100 O2 Delivery Ventilator Mechanical Ventilator Ventilator Ventilator 08/23/17 08/23/17 08/23/17 08/24/17 22:00 22:58 23:00 00:00 Pulse 78 87 Resp 18 18 B/P (MAP) 120/61 (80) 129/68 (88) Pulse Ox 100 100 100 O2 Delivery Ventilator Ventilator Ventilator Mechanical Ventilator 08/24/17 08/24/17 08/24/17 08/24/17 00:00 00:52 01:00 02:00 Temp 101.0 101.0 Pulse 86 102 104 Resp 22 20 17 B/P (MAP) 107/56 (73) 121/70 (87) 112/60 (77) Pulse Ox 100 100 98 96 O2 Delivery Ventilator Ventilator Ventilator Ventilator 08/24/17 08/24/17 08/24/17 08/24/17 03:00 03:15 04:00 04:00 Temp 102.5 102.5 Pulse 106 102 Resp 20 18 B/P (MAP) 116/66 (83) 119/60 (79) Pulse Ox 100 100 100 O2 Delivery Ventilator Ventilator Ventilator Mechanical Ventilator 08/24/17 08/24/17 08/24/17 08/24/17 05:00 05:38 06:00 08:00 Pulse 95 96 Resp 19 18 B/P (MAP) 109/47 (67) 103/46 (65) Pulse Ox 99 100 99 O2 Delivery Ventilator Ventilator Ventilator Mechanical Ventilator 08/24/17 08/24/17 08/24/17 08:18 09:58 12:13 Pulse Ox 99 99 99 O2 Delivery Ventilator Ventilator Ventilator Intake and Output 08/23/17 08/23/17 08/24/17 15:00 23:00 07:00 Intake Total 420 ml 1782 ml 1943 ml Output Total 610 ml 550 ml 605 ml Balance -190 ml 1232 ml 1338 ml OSAMN OWENS MD Aug 24, 2017 12:34
[2017-08-24] MEDS ORDERED: PIPERACILLIN/TAZO IV Push 4.5 GM VIAL. IVP SCH (13:00)
[2017-08-24 13:33] LABS: BASO % 0 % (0-3); EOS % 0 % (0-3); HEMATOCRIT 33.2 % (39.0-53.0); HEMOGLOBIN 11.1 g/dL (13.0-17.5); LYMPH # 1.5 x10^3/uL (1.0-4.8); LYMPH % 11 % (24-48); MEAN CORPUSCULAR HEMOGLOBIN 36 pg (25-35); MEAN CORPUSCULAR HGB CONC 33 g/dL (31-37); MEAN CORPUSCULAR VOLUME 107 fL (79-100); MONO % 3 % (0-9); NEUT % 86 % (31-73); PLATELET COUNT 227 x10^3/uL (140-400); RED BLOOD COUNT 3.09 x10^6/uL (4.30-5.70); RED CELL DISTRIBUTION WIDTH 12.4 % (11.5-14.5); WHITE BLOOD COUNT 14.4 x10^3/uL (4.0-11.0)
[2017-08-24 13:37] LABS: ALBUMIN 2.7 g/dL (3.4-5.0); ALBUMIN/GLOBULIN RATIO 0.8 (1.0-1.7); CREATININE 0.8 mg/dL (0.7-1.3); GFR 140.3; POTASSIUM 3.8 mmol/L (3.5-5.1); TOTAL BILIRUBIN 1.1 mg/dL (0.2-1.0); TOTAL PROTEIN 6.1 g/dL (6.4-8.2)
[2017-08-24 14:29] LABS: NEGATIVE OBC MONO NEG; POSITIVE OBC MONO POS
--- NOTE | 2017-08-24 14:42 | PDOC ---
PULMONARY PROGRESS NOTES Subjective PT SEDATED ON VENT Vitals Vital Signs Date Time Temp Pulse Resp B/P (MAP) Pulse Ox O2 Delivery O2 Flow Rate FiO2 08/24/17 12:13 99 Ventilator 08/24/17 06:00 96 18 103/46 (65) 08/24/17 04:00 102.5 102.5 08/23/17 15:25 15.0 Lungs: Clear Cardiovascular: S1, S2 Abdomen: Soft Extremities: No Edema Skin: Warm Labs Laboratory Tests Test 08/22/17 16:20 08/22/17 16:48 08/22/17 18:15 08/22/17 18:58 White Blood Count 3.9 x10^3/uL (4.0-11.0) Red Blood Count 3.56 x10^6/uL (4.30-5.70) Hemoglobin 12.9 g/dL (13.0-17.5) Hematocrit 38.1 % (39.0-53.0) Mean Corpuscular Volume 107 fL (79-100) Mean Corpuscular Hemoglobin 36 pg (25-35) Mean Corpuscular Hemoglobin Concent 34 g/dL (31-37) Red Cell Distribution Width 12.6 % (11.5-14.5) Platelet Count 327 x10^3/uL (140-400) Neutrophils (%) (Auto) 49 % (31-73) Lymphocytes (%) (Auto) 43 % (24-48) Monocytes (%) (Auto) 5 % (0-9) Eosinophils (%) (Auto) 3 % (0-3) Basophils (%) (Auto) 1 % (0-3) Neutrophils # (Auto) 1.9 x10^3uL (1.8-7.7) Lymphocytes # (Auto) 1.7 x10^3/uL (1.0-4.8) Monocytes # (Auto) 0.2 x10^3/uL (0.0-1.1) Eosinophils # (Auto) 0.1 x10^3/uL (0.0-0.7) Basophils # (Auto) 0.0 x10^3/uL (0.0-0.2) Sodium Level 140 mmol/L (136-145) Potassium Level 4.4 mmol/L (3.5-5.1) Chloride Level 105 mmol/L (98-107) Carbon Dioxide Level 27 mmol/L (21-32) Anion Gap 8 (6-14) Blood Urea Nitrogen 9 mg/dL (8-26) Creatinine 0.9 mg/dL (0.7-1.3) Estimated GFR (Cockcroft-Gault) 122.5 BUN/Creatinine Ratio 10 (6-20) Glucose Level 93 mg/dL (70-99) Lactic Acid Level 1.2 mmol/L (0.4-2.0) Calcium Level 9.2 mg/dL (8.5-10.1) Magnesium Level 2.0 mg/dL (1.8-2.4) Total Bilirubin 0.4 mg/dL (0.2-1.0) Direct Bilirubin 0.1 mg/dL (0.0-0.2) Aspartate Amino Transf (AST/SGOT) 37 U/L (15-37) Alanine Aminotransferase (ALT/SGPT) 21 U/L (16-63) Alkaline Phosphatase 81 U/L (46-116) Ammonia 38 mcmol/L (11-34) Troponin I Quantitative < 0.017 ng/mL (0.000-0.055) Total Protein 7.3 g/dL (6.4-8.2) Albumin 4.0 g/dL (3.4-5.0) Albumin/Globulin Ratio 1.2 (1.0-1.7) Glucose (Fingerstick) 98 mg/dL (70-99) O2 Saturation 99 % (92-99) Arterial Blood pH 7.32 (7.35-7.45) Arterial Blood pCO2 at Patient Temp 51 mmHg (35-46) Arterial Blood pO2 at Patient Temp 200 mmHg (85-108) Arterial Blood HCO3 25 mmol/L (21-28) Arterial Blood Base Excess -1 mmol/L (-3-3) FiO2 50 Urine Collection Type U cath Urine Color Yellow Urine Clarity Hazy Urine pH 5.5 Urine Specific [place] 1.025 Urine Protein Negative mg/dL (NEG-TRACE) Urine Glucose (UA) Negative mg/dL (NEG) Urine Ketones (Stick) Negative mg/dL (NEG) Urine Blood Negative (NEG) Urine Nitrite Negative (NEG) Urine Bilirubin Negative (NEG) Urine Urobilinogen Dipstick 0.2 mg/dL (0.2 mg/dL) Urine Leukocyte Esterase Negative (NEG) Urine RBC Occ /HPF (0-2) Urine WBC 0 /HPF (0-4) Urine Squamous Epithelial Cells Few /LPF Urine Transitional Epithelial Cells Occ /LPF Urine Bacteria 0 /HPF (0-FEW) Urine Mucus Marked /LPF Urine Opiates Screen Neg (NEG) Urine Methadone Screen Neg (NEG) Urine Barbiturates Neg (NEG) Urine Phencyclidine Screen Neg (NEG) Urine Amphetamine/Methamphetamine Neg (NEG) Urine Benzodiazepines Screen Pos (NEG) Urine Cocaine Screen Neg (NEG) Urine Cannabinoids Screen Pos (NEG) Urine Ethyl Alcohol Neg (NEG) Test 08/22/17 19:25 08/22/17 21:12 08/23/17 05:23 08/23/17 08:15 Nasal Screen MRSA (PCR) Negative (Negative) Glucose (Fingerstick) 77 mg/dL (70-99) White Blood Count 3.0 x10^3/uL (4.0-11.0) Red Blood Count 3.20 x10^6/uL (4.30-5.70) Hemoglobin 11.7 g/dL (13.0-17.5) Hematocrit 34.8 % (39.0-53.0) Mean Corpuscular Volume 109 fL (79-100) Mean Corpuscular Hemoglobin 37 pg (25-35) Mean Corpuscular Hemoglobin Concent 34 g/dL (31-37) Red Cell Distribution Width 12.7 % (11.5-14.5) Platelet Count 285 x10^3/uL (140-400) Neutrophils (%) (Auto) 29 % (31-73) Lymphocytes (%) (Auto) 60 % (24-48) Monocytes (%) (Auto) 7 % (0-9) Eosinophils (%) (Auto) 4 % (0-3) Basophils (%) (Auto) 1 % (0-3) Neutrophils # (Auto) 0.8 x10^3uL (1.8-7.7) Lymphocytes # (Auto) 1.8 x10^3/uL (1.0-4.8) Monocytes # (Auto) 0.2 x10^3/uL (0.0-1.1) Eosinophils # (Auto) 0.1 x10^3/uL (0.0-0.7) Basophils # (Auto) 0.0 x10^3/uL (0.0-0.2) Segmented Neutrophils % 33 % (35-66) Lymphocytes % 61 % (24-48) Monocytes % 4 % (0-10) Eosinophils % 2 % (0-5) Platelet Estimate Adequate (ADEQUATE) Macrocytosis Present Sodium Level 142 mmol/L (136-145) Potassium Level 3.5 mmol/L (3.5-5.1) Chloride Level 108 mmol/L (98-107) Carbon Dioxide Level 25 mmol/L (21-32) Anion Gap 9 (6-14) Blood Urea Nitrogen 8 mg/dL (8-26) Creatinine 0.8 mg/dL (0.7-1.3) Estimated GFR (Cockcroft-Gault) 140.3 BUN/Creatinine Ratio 10 (6-20) Glucose Level 88 mg/dL (70-99) Calcium Level 8.4 mg/dL (8.5-10.1) Total Bilirubin 0.7 mg/dL (0.2-1.0) Aspartate Amino Transf (AST/SGOT) 42 U/L (15-37) Alanine Aminotransferase (ALT/SGPT) 21 U/L (16-63) Alkaline Phosphatase 57 U/L (46-116) Total Protein 6.4 g/dL (6.4-8.2) Albumin 3.2 g/dL (3.4-5.0) Albumin/Globulin Ratio 1.0 (1.0-1.7) Vitamin B12 Level 461 pg/mL (247-911) Serum Folate 12.10 ng/ml (3.2-20.0) O2 Saturation 97 % (92-99) Arterial Blood pH 7.38 (7.35-7.45) Arterial Blood pCO2 at Patient Temp 42 mmHg (35-46) Arterial Blood pO2 at Patient Temp 99 mmHg (85-108) Arterial Blood HCO3 25 mmol/L (21-28) Arterial Blood Base Excess -1 mmol/L (-3-3) FiO2 40 Test 08/24/17 00:44 08/24/17 07:30 08/24/17 07:40 08/24/17 13:05 Glucose (Fingerstick) 74 mg/dL (70-99) O2 Saturation 98 % (92-99) Arterial Blood pH 7.39 (7.35-7.45) Arterial Blood pCO2 at Patient Temp 36 mmHg (35-46) Arterial Blood pO2 at Patient Temp 132 mmHg (85-108) Arterial Blood HCO3 22 mmol/L (21-28) Arterial Blood Base Excess -3 mmol/L (-3-3) FiO2 40 C-Reactive Protein, Quantitative 94.1 mg/L (0-3.3) White Blood Count 14.4 x10^3/uL (4.0-11.0) Red Blood Count 3.09 x10^6/uL (4.30-5.70) Hemoglobin 11.1 g/dL (13.0-17.5) Hematocrit 33.2 % (39.0-53.0) Mean Corpuscular Volume 107 fL (79-100) Mean Corpuscular Hemoglobin 36 pg (25-35) Mean Corpuscular Hemoglobin Concent 33 g/dL (31-37) Red Cell Distribution Width 12.4 % (11.5-14.5) Platelet Count 227 x10^3/uL (140-400) Neutrophils (%) (Auto) 86 % (31-73) Lymphocytes (%) (Auto) 11 % (24-48) Monocytes (%) (Auto) 3 % (0-9) Eosinophils (%) (Auto) 0 % (0-3) Basophils (%) (Auto) 0 % (0-3) Neutrophils # (Auto) 12.3 x10^3uL (1.8-7.7) Lymphocytes # (Auto) 1.5 x10^3/uL (1.0-4.8) Monocytes # (Auto) 0.4 x10^3/uL (0.0-1.1) Eosinophils # (Auto) 0.1 x10^3/uL (0.0-0.7) Basophils # (Auto) 0.0 x10^3/uL (0.0-0.2) Sodium Level 142 mmol/L (136-145) Potassium Level 3.8 mmol/L (3.5-5.1) Chloride Level 108 mmol/L (98-107) Carbon Dioxide Level 25 mmol/L (21-32) Anion Gap 9 (6-14) Blood Urea Nitrogen 9 mg/dL (8-26) Creatinine 0.8 mg/dL (0.7-1.3) Estimated GFR (Cockcroft-Gault) 140.3 BUN/Creatinine Ratio 11 (6-20) Glucose Level 101 mg/dL (70-99) Lactic Acid Level 1.1 mmol/L (0.4-2.0) Calcium Level 8.0 mg/dL (8.5-10.1) Total Bilirubin 1.1 mg/dL (0.2-1.0) Aspartate Amino Transf (AST/SGOT) 23 U/L (15-37) Alanine Aminotransferase (ALT/SGPT) 17 U/L (16-63) Alkaline Phosphatase 60 U/L (46-116) Total Protein 6.1 g/dL (6.4-8.2) Albumin 2.7 g/dL (3.4-5.0) Albumin/Globulin Ratio 0.8 (1.0-1.7) Heterophil Agglutinins Negative (NEGATIVE) Laboratory Tests Test 08/24/17 00:44 08/24/17 07:30 08/24/17 07:40 08/24/17 13:05 Glucose (Fingerstick) 74 mg/dL (70-99) O2 Saturation 98 % (92-99) Arterial Blood pH 7.39 (7.35-7.45) Arterial Blood pCO2 at Patient Temp 36 mmHg (35-46) Arterial Blood pO2 at Patient Temp 132 mmHg (85-108) Arterial Blood HCO3 22 mmol/L (21-28) Arterial Blood Base Excess -3 mmol/L (-3-3) FiO2 40 C-Reactive Protein, Quantitative 94.1 mg/L (0-3.3) White Blood Count 14.4 x10^3/uL (4.0-11.0) Red Blood Count 3.09 x10^6/uL (4.30-5.70) Hemoglobin 11.1 g/dL (13.0-17.5) Hematocrit 33.2 % (39.0-53.0) Mean Corpuscular Volume 107 fL (79-100) Mean Corpuscular Hemoglobin 36 pg (25-35) Mean Corpuscular Hemoglobin Concent 33 g/dL (31-37) Red Cell Distribution Width 12.4 % (11.5-14.5) Platelet Count 227 x10^3/uL (140-400) Neutrophils (%) (Auto) 86 % (31-73) Lymphocytes (%) (Auto) 11 % (24-48) Monocytes (%) (Auto) 3 % (0-9) Eosinophils (%) (Auto) 0 % (0-3) Basophils (%) (Auto) 0 % (0-3) Neutrophils # (Auto) 12.3 x10^3uL (1.8-7.7) Lymphocytes # (Auto) 1.5 x10^3/uL (1.0-4.8) Monocytes # (Auto) 0.4 x10^3/uL (0.0-1.1) Eosinophils # (Auto) 0.1 x10^3/uL (0.0-0.7) Basophils # (Auto) 0.0 x10^3/uL (0.0-0.2) Sodium Level 142 mmol/L (136-145) Potassium Level 3.8 mmol/L (3.5-5.1) Chloride Level 108 mmol/L (98-107) Carbon Dioxide Level 25 mmol/L (21-32) Anion Gap 9 (6-14) Blood Urea Nitrogen 9 mg/dL (8-26) Creatinine 0.8 mg/dL (0.7-1.3) Estimated GFR (Cockcroft-Gault) 140.3 BUN/Creatinine Ratio 11 (6-20) Glucose Level 101 mg/dL (70-99) Lactic Acid Level 1.1 mmol/L (0.4-2.0) Calcium Level 8.0 mg/dL (8.5-10.1) Total Bilirubin 1.1 mg/dL (0.2-1.0) Aspartate Amino Transf (AST/SGOT) 23 U/L (15-37) Alanine Aminotransferase (ALT/SGPT) 17 U/L (16-63) Alkaline Phosphatase 60 U/L (46-116) Total Protein 6.1 g/dL (6.4-8.2) Albumin 2.7 g/dL (3.4-5.0) Albumin/Globulin Ratio 0.8 (1.0-1.7) Heterophil Agglutinins Negative (NEGATIVE) Medications Active Scripts Medications Dose Route/Sig Max Daily Dose Days Date Category Percocet 5-325 Mg Tablet (Oxycodone/Acetaminophen) 1 Each Tablet 1-2 Tab PO Q6HRS PRN 07/05/17 Rx Impression . 1. Acute respiratory failure secondary to seizure-like activity. 2. Seizures, possibly related to drug ingestion. 3. Bipolar disorder. 4. Type 1 diabetes. Plan . EEG TODAY WILL D/C SEDATION IF PT FOLLOW DIRECTION WILL EXTUBATE TEE CASTRO MD Aug 24, 2017 14:42
[2017-08-24 14:47] LABS: PLT ESTIMATE ADEQUATE (ADEQUATE)
--- NOTE | 2017-08-24 16:09 | EEG ---
DATE OF SERVICE: OBJECTIVE: The patient is a 26-year-old male with altered mental status and several episodes of syncope prior to admission. DESCRIPTION: This is a digital study performed portably at the patient's bedside in the Intensive Care Unit. Bipolar and referential montages are available. Activation procedures typically include hyperventilation and intermittent photic stimulation. INTERPRETATION: The waking background consists of 8-9 Hz, 50-100 microvolt activity, symmetrically distributed over parietooccipital regions and reactive to eye opening. Hyperventilation and intermittent photic stimulation are noncontributory. Sleep is not achieved. The patient did not hyperventilate because of the fact that he was on the ventilator. IMPRESSION: This electroencephalogram with the patient awake only is within normal limits. There is no focal, paroxysmal, or epileptiform activity. Thank you for letting us help with the patient's care. JOHN YADAV MD DR: MARCIA/liliya JOB#: [id number] / [id number] LENKA Peres IRA MD
[2017-08-24] MEDS ORDERED: PIPERACILLIN/TAZOBACTAM 4.5 GM in IV DEXTROSE 5% 100 ML IV SCH (18:00)
[2017-08-24] MEDS ORDERED: CHLORHEXIDINE 0.12% 15 ML MOUTHWASH. MM SCH (21:00)
== END 2017-08-24 15:35 | disposition left against medical advice (07) | DRG 208 ==
LOC: ER 16:15 → 1 WEST ICU 18:11
PROVIDERS: ADMIT Internal Medicine; ATTEND Internal Medicine
PROC: 5A1945Z Respiratory Ventilation, 24-96 Consecutive Hours (ICD-10-PCS; principal; 2017-08-22)
PROC: 0BH17EZ Insertion of Endotracheal Airway into Trachea, Via Natural or Artificial Opening (ICD-10-PCS; 2017-08-22)
DX: J96.00 Acute respiratory failure, unspecified whether with hypoxia or hypercapnia (principal); G92 Toxic encephalopathy; G40.909 Epilepsy, unspecified, not intractable, without status epilepticus; D72.820 Lymphocytosis (symptomatic); D75.89 Other specified diseases of blood and blood-forming organs; F12.10 Cannabis abuse, uncomplicated; J32.9 Chronic sinusitis, unspecified; E10.9 Type 1 diabetes mellitus without complications; F31.9 Bipolar disorder, unspecified; I10 Essential (primary) hypertension; F41.9 Anxiety disorder, unspecified; Z79.4 Long term (current) use of insulin; Z79.899 Other long term (current) drug therapy
CPT/HCPCS: 31500; 36415; 36600; 51702; 70450; 70551; 71010; 73080; 73110; 73562; 74000; 80053; 80076; 80307; 81001; 82140; 82607; 82746; 82805; 82962; 83605; 83735; 83921; 84145; 84484; 85007; 85025; 85651; 86140; 86308; 86644; 86645; 87040; 87641; 93005; 94002; 94003; 95816; 96361; 96372; 96374; 96375; J0330; J0456; J1630; J1650; J1953; J2060; J2704; J7030; J7050; Q0144; S0028; 99291-25; G0479

== ENCOUNTER 2017-09-02 14:19 | Emergency (ER) | payer OTHER ==
[~2017-09-02] VITALS: Ht 175.3 cm; Wt 72.6 kg
[2017-09-02] MEDS ORDERED: LORazepam 1 MG TABLET PO ONE (14:30)
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
[2017-09-02 14:40] LABS: BASO % 1 % (0-3); EOS % 1 % (0-3); HEMATOCRIT 39.4 % (39.0-53.0); LYMPH # 1.4 x10^3/uL (1.0-4.8); LYMPH % 33 % (24-48); MEAN CORPUSCULAR HEMOGLOBIN 36 pg (25-35); MEAN CORPUSCULAR HGB CONC 33 g/dL (31-37); MEAN CORPUSCULAR VOLUME 108 fL (79-100); MONO % 5 % (0-9); NEUT % 60 % (31-73); PLATELET COUNT 379 x10^3/uL (140-400); RED BLOOD COUNT 3.64 x10^6/uL (4.30-5.70); RED CELL DISTRIBUTION WIDTH 12.8 % (11.5-14.5); WHITE BLOOD COUNT 4.4 x10^3/uL (4.0-11.0)
--- NOTE | 2017-09-02 14:41 | EKG ---
[facility] [address] [place] [id number] Test Date: 2017-09-02 Test Time: 14:30:36 Pat Name: DEBORAH LOVE Department: Room: Gender: M Data Processing Equipment Repairer: : [id number] Requested By: CESAR RANDALL Order Number: [id number] Reading MD: Measurements Intervals [place] Rate: 67 P: 17 CA: 190 QRS: 81 QRSD: 96 T: 55 QT: 382 QTc: 406 Interpretive Statements SINUS RHYTHM INCOMPLETE RIGHT BUNDLE BRANCH BLOCK RVH WITH REPOLARIZATION ABNORMALITY NON SPECIFIC ST-T ABNORMALITY (ELEVATION) ABNORMAL ECG No previous ECG available for comparison
[2017-09-02 14:55] LABS: CALCIUM 9.2 mg/dL (8.5-10.1); CREATININE 0.9 mg/dL (0.7-1.3); GFR 122.5; POTASSIUM 3.5 mmol/L (3.5-5.1)
[2017-09-02 15:00] LABS: ALBUMIN/GLOBULIN RATIO 1.1 (1.0-1.7); TOTAL BILIRUBIN 0.6 mg/dL (0.2-1.0); TOTAL PROTEIN 7.8 g/dL (6.4-8.2)
--- NOTE | 2017-09-02 15:19 | RAD ---
CT of the head without contrast, 09/02/2017: History: Seizure, fall The ventricles are within normal limits in size. There is no shift of the midline structures. There is no evidence of acute intracranial hemorrhage or mass effect. IMPRESSION: No acute intracranial abnormality is detected. CT of the cervical spine without contrast, 09/02/2017: Noncontrast scans were obtained with multiplanar reconstructions produced. A small defect in the anterior arch of C1 demonstrates sclerotic margins in a pattern suggesting a developmental defect. No acute fracture or dislocation is identified. The vertebral heights are well-maintained. The central spinal canal is well-preserved. IMPRESSION: No acute cervical spine abnormality is detected. PQRS Compliance Statement: One or more of the following individualized dose reduction techniques were utilized for this examination: 1. Automated exposure control 2. Adjustment of the mA and/or kV according to patient size 3. Use of iterative reconstruction technique
[2017-09-02 15:29] LABS: BARBITURATES NEG (NEG); BENZODIAZEPINES POS (NEG); CANNABINOIDS POS (NEG); COCAINE NEG (NEG); METHADONE NEG (NEG); OPIATES NEG (NEG); PHENCYCLIDINE NEG (NEG)
[2017-09-02 16:30] VITALS: BP 112/79
== END 2017-09-02 16:44 | disposition left against medical advice (07) ==
LOC: ER 14:19
DX: R55 Syncope and collapse (principal); R56.9 Unspecified convulsions; M54.2 Cervicalgia; F41.9 Anxiety disorder, unspecified; E10.9 Type 1 diabetes mellitus without complications; F31.9 Bipolar disorder, unspecified
CPT/HCPCS: 36415; 70450; 72125; 80053; 80307; 85025; 93005; 96374; 99285; J2060; G0479